=== PATIENT | male | born 1955 | race African-American/Black ===

== ENCOUNTER 2018-11-30 09:24 | Observation (INO) | payer OTHER, SELFPAY ==
[2018-11-30] MEDS ORDERED: Ondansetron PF 4 MG/2 ML Vial ONE (09:38)
[2018-11-30] MEDS ORDERED: Aspirin Chewable 81 MG TAB ONE (09:38)
[2018-11-30 09:45] LABS: #Eosinphils 0.2 thou/uL (0.0-0.7); #Lymphocytes 2.2 thou/uL (1.20-3.40); #Monocytes 0.7 thou/uL (0.11-0.59); #Neutrophils 3.6 thou/uL (1.40-6.50); %Basophils 0.7 % (0.0-1.0); %Eosinophils 2.5 % (0.0-10.0); %Lymphocytes 32.7 % (21.0-51.0); %Monocytes 9.8 % (0.0-10.0); %Neutrophils 54.2 % (42.0-75.0); Hemoglobin 14.4 g/dL (14.0-18.0); Mean Corpuscular HGB CONC 32.9 g/dL (32.0-36.0); Mean Corpuscular Hemoglobin 27.7 pg (27.0-31.0); Platelet Count 284 thou/uL (130-400); RBC Distribution Width 12.4 % (11.5-14.5); Red Blood Cell (RBC) Count 5.21 mill/uL (4.70-6.10); White Blood Cell (WBC) Count 6.6 thou/uL (4.8-10.8)
--- NOTE | 2018-11-30 09:59 | RAD ---
CHEST 1 VIEW PORTABLE: Date: 11/30/18 HISTORY: Chest pain and nausea for several days. FINDINGS: Heart size is within normal limits. Lungs are clear. IMPRESSION: No acute intrathoracic disease. Atherosclerosis of aorta. POS: [facility]
[2018-11-30] MEDS ORDERED: Nitroglycerin 2% Ointment 1 INCH/1 GM Packet ONE (10:01)
[2018-11-30 10:07] LABS: ALT (SGPT) 55 U/L (8-55); AST (SGOT) 50 U/L (5-34); Albumin 4.6 g/dL (3.4-4.8); Alkaline Phosphatase 72 U/L (40-150); Anion Gap 15 mmol/L (10-20); BUN (Urea Nitrogen) 20 mg/dL (8.4-25.7); Bilirubin, Total 0.7 mg/dL (0.2-1.2); CK (CPK) 214 U/L (30-200); Calc. Creatinine Clearance 0 mL/min (70-130); Calcium 10.6 mg/dL (7.8-10.44); Carbon Dioxide 27 mmol/L (23-31); Chloride 100 mmol/L (98-107); Estimated GFR-MDRD 79; Globulin 3.5 g/dL (2.4-3.5); Glucose 113 mg/dL (80-115); Lipase 35 U/L (8-78); Potassium 4.3 mmol/L (3.5-5.1); Protein, Total 8.1 g/dL (5.8-8.1); Sodium 138 mmol/L (136-145)
[2018-11-30] MEDS ORDERED: Acetaminophen 500 MG TAB ONE (10:40)
[2018-11-30 12:28] VITALS: BMI 33.2
[2018-11-30 12:58] LABS: Troponin I Less than 0.010 ng/mL (< 0.028)
[2018-11-30] MEDS ORDERED: Nitroglycerin 0.4 MG TAB (25 Tab Bottle) PO PRN (13:47)
[2018-11-30] MEDS ORDERED: Dextrose 5% in Water 1,000 ML IV PRN (15:07)
[2018-11-30] MEDS ORDERED: Dextrose 50% Abboject 50 ML SYRINGE SLOW IVP PRN (15:07)
[2018-11-30] MEDS ORDERED: HumaLOG 300 UNITS/3 ML VIAL SC PRN (15:07)
--- NOTE | 2018-11-30 15:55 | HP ---
PRIMARY CARE PROVIDER: [facility]. CHIEF COMPLAINT: Chest pain. HISTORY OF PRESENT ILLNESS: Mr. Gaytan is a pleasant 63-year-old gentleman, who was seen at [facility] on November 30, 2018. He reports that 2 days ago he was cutting up a tree. He bent over and then tried to get up. He felt dizzy. At the same time, he started having pain over the left side of his chest, sharp, 7/10 at its worst, nonradiating, no known aggravating or relieving factors. He reports that it was accompanied by dizziness. He went home, took a shower, and got into bed. The next day he started having the chest discomfort as well as the dizziness. He was sent from [facility] to the emergency room because of ongoing chest pain. REVIEW OF SYSTEMS: All other systems reviewed and found to be negative. PAST MEDICAL HISTORY: Hypertension, dyslipidemia, and diabetes mellitus. SURGICAL HISTORY: Appendectomy. SOCIAL HISTORY: The patient reports daily alcohol use. He denies tobacco use or recreational drug use. FAMILY HISTORY: Significant for sickle cell anemia in his mother and colon cancer, hypertension, and diabetes mellitus in his father. ALLERGIES: NO KNOWN DRUG ALLERGIES. CURRENT MEDICATIONS: 1. Amlodipine 10 mg daily. 2. Metformin 500 mg 2 times a day. PHYSICAL EXAMINATION: GENERAL: On examination, Mr. Gaytan is awake and alert, not in acute distress. VITAL SIGNS: Blood pressure is 143/67, pulse 75, respiratory rate 16, and oxygen saturation 100% on room air. He is afebrile. He is obese, with a BMI of 33.2. EYES: No scleral icterus, no conjunctival pallor. ENT: Moist mucosal membranes. No oropharyngeal erythema or exudates. NECK: Supple, nontender, trachea is midline. RESPIRATORY: Accessory muscles of breathing are not active. Chest wall movements are symmetric bilaterally. Lungs are clear to auscultation without wheeze, rhonchi, or crepitations. CARDIOVASCULAR: S1 and S2 are heard, regular. Peripheral pulses palpable. No carotid bruit. No pericardial rub. ABDOMEN: Soft, nontender, bowel sounds heard, no hepatomegaly, no splenomegaly. NEUROLOGIC: Cranial nerves 2 through 12 intact, deep tendon reflexes 2+. MUSCULOSKELETAL: No reproducible chest wall tenderness. Power is 5/5 in all 4 extremities. SKIN: No rashes or subcutaneous nodules. LYMPHATIC: No cervical lymphadenopathy. PSYCHIATRIC: Normal mood, normal affect, the patient is oriented to person, place, and time. LABORATORY DATA: Mr. Gaytan's labs and investigations were reviewed. I reviewed his electrocardiogram, which shows normal sinus rhythm, no ST changes to suggest an acute coronary syndrome. I also reviewed his chest x-ray, which does not show any pulmonary infiltrates. He has an unremarkable CBC, mildly elevated calcium of 10.6, mildly elevated AST of 50, normal total bilirubin, normal ALT, and normal alkaline phosphatase, troponin I that is negative x2, and TSH that is low at 0.0692. ASSESSMENT AND PLAN: Mr. Gaytan is a pleasant 63-year-old gentleman, who was seen at [facility] on November 30, 2018. His problem list includes: 1. Chest pain: Mr. Gaytan will be admitted to the hospital on observation status for telemetry monitoring and stress test. Further management depending on outcome of the test. 2. Diabetes mellitus type 2: We will start Accu-Cheks and insulin sliding scale. 3. Hypertension: We will continue amlodipine, monitor vital signs, and titrate antihypertensives as needed. 4. Low TSH: We will check free T3 and free T4. We will adjust Synthroid if needed. Many thanks for allowing me to participate in your patient's care. Please feel free to contact me with any questions or concerns. LEVEL OF RISK: High. LEVEL OF COMPLEXITY: High. Job ID: [id number]
[2018-11-30 16:18] LABS: Troponin I Less than 0.010 ng/mL (< 0.028)
[2018-11-30 16:35] LABS: Free T4 (Free Thyroxine) 1.05 ng/dL (0.70-1.48)
[2018-11-30] MEDS: metFORMIN 500 MG TAB PO SCH (17:32)
[2018-11-30] MEDS ORDERED: Acetaminophen 325 MG TAB PO PRN (19:52)
[2018-11-30] MEDS ORDERED: Ondansetron PF 4 MG/2 ML Vial IVP PRN (19:53)
[2018-12-01] MEDS: metFORMIN 500 MG TAB PO SCH (08:25)
[2018-12-01] MEDS ORDERED: Atorvastatin Calcium 20 MG TAB PO SCH (09:00)
[2018-12-01] MEDS ORDERED: Lisinopril/Hydrochlorothiazide 20/25 mg Tablet PO SCH (09:00)
[2018-12-01] MEDS ORDERED: Aspirin 325 mg Enteric Coated Tablet PO SCH (09:00)
[2018-12-01] MEDS ORDERED: Chlorthalidone 25 MG TAB PO SCH (09:00)
[2018-12-01] MEDS ORDERED: Amlodipine 10 MG TAB PO SCH (09:00)
[2018-12-01] MEDS ORDERED: ADENOSINE 60 MG/20 ML VIAL ONE (10:15)
[2018-12-01] MEDS ORDERED: ISOVUE-370 76%-LOCM 1 ML ONE (11:12)
--- NOTE | 2018-12-01 11:24 | NM ---
Nuclear medicine Cardiac myocardial perfusion SPECT Ejection fraction study Wall motion cine: DATE: 12/01/2018 History: 63-year-old male with diabetes mellitus, hypertension, and dyslipidemia, presents with chest pain. TECHNIQUE: Number of days:1 Rest study: Technetium 99m-sestamibi (Cardiolite) dose:9.8 mCi Pharmacologic stress: Adenosine dose:57.2 mg Stress study: Technetium 99m-sestamibi (Cardiolite) dose:28.7 mCi FINDINGS: Cardiac (myocardial perfusion) SPECT There are no reversible myocardial perfusion defects. Ejection fraction study Left ventricular EF = 69% Wall motion cine Normal IMPRESSION: No evidence of reversible ischemia.
--- NOTE | 2018-12-01 13:45 | EKG ---
Test Reason : CHEST PAIN Blood Pressure : / mmHG Vent. Rate : 096 BPM Atrial Rate : 096 BPM P-R Int : 156 ms QRS Dur : 080 ms QT Int : 334 ms P-R-T Axes : 030 -07 020 degrees QTc Int : 421 ms Normal sinus rhythm Possible Left atrial enlargement Borderline ECG Confirmed by ANDRES YANG, SUZANNA ([id number]), make up editor JUANCHO DEAN ([id number]) on 12/01/2018 1:45:38 PM Referred By: Confirmed By:SUZANNA CAMPOS MD
[2018-12-01 15:22] VITALS: BP 150/76; TEMP 97.7
--- NOTE | 2018-12-01 16:54 | CT ---
CT ANGIOGRAM THORAX WITH IV CONTRAST AND 3-D RECONSTRUCTIONS CLINICAL INDICATION: Shortness of breath. COMPARISON: None FINDINGS: Pulmonary arteries: No filling defects are seen in the pulmonary arteries to suggest a pulmonary embo marco. Aorta: Minimal vascular calcifications are seen at the aortic arch and at the origin of the left subc lavian artery. The thoracic aorta is normal in caliber without evidence of an aortic dissection. Lungs: There is a small bleb with adjacent pleural and parenchymal scarring at the right lung apex. T here are scattered areas of atelectasis within the lungs. No discrete pulmonary nodule or mass is identified, and there is no pleural effusion.. Mediastinum: There is no evidence of lymphadenopathy. Thyroid gland: Normal CT appearance. Osseous structures: Mild degenerative changes are seen in the spine. Chest wall: No abnormality visualized. Upper abdomen: There is a subcentimeter hypodense too small to characterize lesion in the lateral seg ment left hepatic lobe. Vascular calcifications are seen in the visualized proximal abdominal aorta. Mild fatty replacement of the pancreas is seen. Remainder of the upper abdomen demonstrates no rmal CT appearance for arterial phase of imaging. IMPRESSION: 1. No CT evidence of a pulmonary embolus. 2. Too small to characterize subcentimeter hypodense lesion left hepatic lobe.
--- NOTE | 2018-12-02 02:31 | DIS ---
DATE OF ADMISSION: 11/30/2018 DATE OF DISCHARGE: 12/01/2018 PRIMARY CARE PROVIDER: [facility], [place]. DISCHARGE DIAGNOSES: 1. Chest pain. 2. Most likely musculoskeletal etiology for chest pain. CONDITION OF PATIENT ON THE DAY OF DISCHARGE: Stable. I assessed Mr. Gaytan on the day of discharge. He denies any chest pain. Vital signs are stable. S1 and S2 are heard, regular. Lungs are clear to auscultation bilaterally. DISCHARGE MEDICATIONS: 1. Amlodipine 10 mg daily. 2. Metformin 500 mg 2 times a day. HOSPITAL COURSE: Mr. Gaytan is a pleasant 63-year-old gentleman, who was admitted to [facility] on December 01, 2018, for chest pain. He had a nuclear stress test, which did not show any evidence of reversible ischemia. Left ventricular ejection fraction was 69%. He had an elevated D-dimer and underwent CT angiogram to rule out pulmonary embolism. There was no CT evidence of a pulmonary embolus. He had too small to characterize subcentimeter hypodense lesion in the left hepatic lobe. He was advised to follow up with his primary care provider for the same. He had a low TSH at the time of admission, but free T3 and free T4 were in the normal range at 2.93 and 1.05 respectively. Many thanks for allowing me to participate in your patient's care. Please feel free to contact me with any questions or concerns. DISCHARGE DESTINATION: Home. Job ID: [id number]
== END 2018-12-01 17:46 | disposition home or self-care (01) ==
LOC: ERS 09:24 → 2SW 12:06
PROVIDERS: ADMIT Internal Medicine; ATTEND Internal Medicine
DX: R07.89 Other chest pain (principal); E78.5 Hyperlipidemia, unspecified; E11.9 Type 2 diabetes mellitus without complications; I10 Essential (primary) hypertension; E03.9 Hypothyroidism, unspecified; F41.9 Anxiety disorder, unspecified; Z79.84 Long term (current) use of oral hypoglycemic drugs; Z79.899 Other long term (current) drug therapy
CPT/HCPCS: 36415; 36416; 71045; 71275; 78452; 80053; 82550; 83690; 83735; 84439; 84443; 84481; 84484; 85025; 85379; 93005; 93017; 94760; 96374; A9500; G0378; J0153; J2405; Q9966

== ENCOUNTER 2020-06-29 13:45 | Emergency (ER) | payer MEDICARE, MEDICAID ==
[2020-06-29 15:06] LABS: #Eosinphils 0.1 thou/uL (0.0-0.7); #Lymphocytes 0.9 thou/uL (1.20-3.40); #Monocytes 0.9 thou/uL (0.11-0.59); #Neutrophils 6.2 thou/uL (1.40-6.50); %Basophils 0.1 % (0.0-1.0); %Eosinophils 0.8 % (0.0-10.0); %Lymphocytes 11.3 % (21.0-51.0); %Neutrophils 76.8 % (42.0-75.0); Mean Corpuscular HGB CONC 32.9 g/dL (32.0-36.0); Mean Corpuscular Hemoglobin 28.6 pg (27.0-31.0); Mean Corpuscular Volume 86.8 fL (78.0-98.0); Mean Platelet Volume 7.5 fL (7.4-10.4); Platelet Count 289 thou/uL (130-400); RBC Distribution Width 11.7 % (11.5-14.5); Red Blood Cell (RBC) Count 5.58 mill/uL (4.70-6.10); White Blood Cell (WBC) Count 8.1 thou/uL (4.8-10.8)
--- NOTE | 2020-06-29 15:09 | RAD ---
XR Chest 1 View Portable History: Chest pain Comparison: Radiograph 2019 Findings: Lungs are clear. No pneumothorax. No effusion. Cardiac silhouette and mediastinal contours are similar. No acute osseous abnormality. Mild right distal clavicular osteolysis. Impression: No acute intrathoracic abnormality.
[2020-06-29 15:32] LABS: ALT (SGPT) 59 U/L (8-55); AST (SGOT) 48 U/L (5-34); Albumin 4.1 g/dL (3.4-4.8); Alkaline Phosphatase 83 U/L (40-110); Anion Gap 18 mmol/L (10-20); BUN (Urea Nitrogen) 14 mg/dL (8.4-25.7); Bilirubin, Total 0.5 mg/dL (0.2-1.2); Calc. Creatinine Clearance 0 mL/min (70-130); Calcium 9.2 mg/dL (7.8-10.44); Carbon Dioxide 25 mmol/L (23-31); Chloride 95 mmol/L (98-107); Globulin 3.7 g/dL (2.4-3.5); Glucose 117 mg/dL (80-115); Lipase 14 U/L (8-78); Potassium 3.4 mmol/L (3.5-5.1); Protein, Total 7.8 g/dL (5.8-8.1); Sodium 135 mmol/L (136-145)
[2020-06-29] MEDS ORDERED: Ketorolac Tromethamine 30 MG/ML VIAL ONE (15:38)
[2020-06-29] MEDS ORDERED: Dexamethasone 10 MG/ML VIAL ONE (18:09)
[2020-06-30 01:36] LABS: SARS-CoV-2 MS2 Positive; SARS-CoV-2 N Gene Negative; SARS-CoV-2 S Gene Negative; SARS-CoV-2 by NAA Not Detected (NotDetected); SARS-CoV-2 orf1ab Negative
--- NOTE | 2020-07-04 15:21 | EKG ---
Test Reason : SOB Blood Pressure : / mmHG Vent. Rate : 087 BPM Atrial Rate : 087 BPM P-R Int : 154 ms QRS Dur : 100 ms QT Int : 360 ms P-R-T Axes : 042 -30 016 degrees QTc Int : 433 ms Normal sinus rhythm Possible Left atrial enlargement Left axis deviation Abnormal ECG Confirmed by HARISH SMITH DO ([id number]), web editor JUANCHO DEAN ([id number]) on 07/04/2020 3:20:35 PM Referred By: Confirmed By:HARISH SMITH DO
== END 2020-06-29 18:39 | disposition home or self-care (01) ==
LOC: ERS 13:45
DX: R07.82 Intercostal pain (principal); R05 Cough; E11.9 Type 2 diabetes mellitus without complications; E03.9 Hypothyroidism, unspecified; E78.5 Hyperlipidemia, unspecified; I10 Essential (primary) hypertension; Z20.828 Contact with and (suspected) exposure to other viral communicable diseases; Z79.899 Other long term (current) drug therapy; Z79.82 Long term (current) use of aspirin; Z79.84 Long term (current) use of oral hypoglycemic drugs
CPT/HCPCS: 36415; 71045; 80053; 83690; 84484; 85025; 85379; 87635; 93005; 96372; 96374; J1100; J1885; U0003

== ENCOUNTER 2020-07-06 13:33 | Inpatient (IN) | payer MEDICARE, MEDICAID ==
[~2020-07-06 13:33] MED LIST: Iopamidol-370 76% 500 ML 1 ML ONE
[2020-07-06 14:49] LABS: #Lymphocytes 0.9 thou/uL (1.20-3.40); #Monocytes 0.8 thou/uL (0.11-0.59); #Neutrophils 6.1 thou/uL (1.40-6.50); %Basophils 0.3 % (0.0-1.0); %Eosinophils 0.6 % (0.0-10.0); %Monocytes 9.8 % (0.0-10.0); %Neutrophils 78.3 % (42.0-75.0); Hemoglobin 16.6 g/dL (14.0-18.0); Mean Corpuscular HGB CONC 32.8 g/dL (32.0-36.0); Mean Corpuscular Hemoglobin 28.3 pg (27.0-31.0); Mean Corpuscular Volume 86.3 fL (78.0-98.0); Mean Platelet Volume 7.2 fL (7.4-10.4); Platelet Count 413 thou/uL (130-400); RBC Distribution Width 11.5 % (11.5-14.5); Red Blood Cell (RBC) Count 5.87 mill/uL (4.70-6.10); White Blood Cell (WBC) Count 7.8 thou/uL (4.8-10.8)
--- NOTE | 2020-07-06 14:49 | RAD ---
EXAM: XR Chest 1 View Portable PROVIDED CLINICAL HISTORY: Dyspnea COMPARISON: 06/29/2020 FINDINGS: Cardiac and mediastinal silhouette is unchanged in appearance. There is silhouetting of the lateral l eft hemidiaphragm and blunting of the left costophrenic angle. Lungs appear otherwise clear. There is no evidence for pneumothorax. IMPRESSION: Left basilar pleural-parenchymal opacity. Correlate for pneumonia. Follow-up is recommended.
[2020-07-06 15:01] LABS: ALT (SGPT) 29 U/L (8-55); AST (SGOT) 22 U/L (5-34); Albumin 3.9 g/dL (3.4-4.8); Alkaline Phosphatase 82 U/L (40-110); Anion Gap 20 mmol/L (10-20); BUN (Urea Nitrogen) 20 mg/dL (8.4-25.7); Bilirubin, Total 0.5 mg/dL (0.2-1.2); Calc. Creatinine Clearance 0 mL/min (70-130); Calcium 9.3 mg/dL (7.8-10.44); Carbon Dioxide 26 mmol/L (23-31); Chloride 93 mmol/L (98-107); Globulin 3.4 g/dL (2.4-3.5); Glucose 132 mg/dL (80-115); Lipase 17 U/L (8-78); Protein, Total 7.3 g/dL (5.8-8.1); Sodium 135 mmol/L (136-145)
--- NOTE | 2020-07-06 15:54 | CT ---
EXAM: CT pulmonary angiogram with IV contrast and 3-D MIP reconstructions PROVIDED CLINICAL HISTORY: Dyspnea COMPARISON: None FINDINGS: There is no evidence for central or segmental pulmonary embolus. There are innumerable bilateral miliary pulmonary nodules. There is no significant apical-basilar gra dient. These appear randomly distributed. No pleural fluid or pneumothorax apparent. No evidence for thoracic lymph node enlargement. The airway appears patent and of normal caliber. The visualized portions of the upper abdomen demonstrate no acute findings. The osseous structures demonstrate no concerning lytic or blastic lesions. IMPRESSION: 1. No evidence for central or segmental pulmonary embolus. 2. Diffuse bilateral miliary pulmonary nodules. Differential considerations would include atypical in fectious processes such as tuberculosis and fungal infections. Metastatic disease and inflammatory pneumonitis could also be considered.
[2020-07-06] MEDS ORDERED: cefTRIAXone\\ROCEPHIN 1 GM VIAL ONE (17:21)
--- NOTE | 2020-07-06 17:29 | PDOC.HHP ---
Hospitalist HPI - History of Present Illness Shortness of breath History of Present Illness: 65-year-old male who came to emergency room with a complaint of cough and shortness of breath for last 7 to 9 days, patient visited emergency room on June 29 at that time COVID-19 test was negative, patient had routine work-up done and after that he was sent home, he had worsening of symptoms and now he has bilateral blood-tinged sputum, he has chills and night sweats, but no confirmed fever, he denies any loss of taste or smell sensation, he denies any sore throat, he denies any upper respiratory infection, he denies any chest pain, he does have shortness of breath and he is feeling generalized weak. Today in the emergency room chest x-ray showed left basilar parenchymal opacity, CT angiography was done for slightly read D-dimer and found with no PE but there was diffuse bilateral miliary pulmonary nodule ED Course: VITAL SIGNS MonJul 06, 2020 13:57 AMBER Oliveira Amanda BP: 151/86, MAP: 107, Pulse: 93, Resp: 17, Temp: 98.4 (Oral), Pain: 7, O2 sat: 94 on (Room Air), Time: 07/06/2020 13:57. VITAL SIGNS MonJul 06, 2020 14:30 AMBER Messina Lauren BP: 161/84, Pulse: 91, Resp: 19, O2 sat: 95 on (Room Air), Time: 07/06/2020 14:30. VITAL SIGNS MonJul 06, 2020 15:00 AMBER Messina Lauren BP: 129/77, Pulse: 95, Resp: 20, Pain: 6, O2 sat: 94 on (Room Air), Time: 07/06/2020 15:00. VITAL SIGNS MonJul 06, 2020 16:00 AMBER Messina Lauren BP: 141/83, Pulse: 89, Resp: 22, Pain: 6, O2 sat: 94 on (Room Air), Time: 07/06/2020 16:00 Patient is given Rocephin and azithromycin in the emergency room Hospitalist ROS - Review of Systems Constitutional: reports: weakness, malaise. denies: fever, chills, sweats, other Eyes: denies: pain, vision change, conjunctivae inflammation, eyelid inflammation, redness, other ENT: denies: ear pain, ear discharge, nose pain, nose discharge, nose congestion, mouth pain, mouth swelling, throat pain, throat swelling, other Respiratory: reports: cough, shortness of breath, hemoptysis, SOB with e xcertion, sputum. denies: dry, pleuritic pain, wheezing, other Cardiovascular: denies: chest pain, palpitations, orthopnea, paroxysmal noc. dyspnea, edema, light headedness, other Gastrointestinal: denies: nausea, vomiting, abdominal pain, diarrhea, constipation, melena, hematochezia, other Genitourinary: denies: dysuria, frequency, incontinence, hematuria, retention, other Musculoskeletal: denies: neck pain, shoulder pain, arm pain, back pain, hand pain, leg pain, foot pain, other Skin: denies: rash, lesions, parker, bruising, other - Medication Medications: Allergy Allergies No Known Allergies Allergy (Verified 06/14/16 17:25) per pt Home medication Medication Instructions Recorded Confirmed Type Amlodipine [Norvasc] 10 mg PO DAILY #30 tab 06/17/16 11/30/18 Rx Atorvastatin Calcium [Lipitor] 20 mg PO DAILY 11/30/18 11/30/18 History Chlorthalidone 25 mg PO DAILY 11/30/18 11/30/18 History Lisinopril/Hydrochlorothiazide 1 tablet PO DAILY 11/30/18 11/30/18 History [Lisinopril-Hctz 20-25 mg Tab] Pantoprazole [Protonix] 40 mg PO DAILY 11/30/18 11/30/18 History metFORMIN [Glucophage] 500 mg PO BID-WM 11/30/18 11/30/18 History Hospitalist History - Past Medical History Other Medical History: Peptic ulcer disease Diabetes type 2 Hypothyroidism Dyslipidemia Hypertension Anxiety disorder - Past Surgical History Other Surgical History: Appendicectomy Colonoscopy with polyp removal - Family History Other Family History: No strong family history of premature coronary artery disease stroke or cancer - Social History Other Social History: Patient has history of marijuana abuse, he drinks alcohol on weekends, no history of smoking - Exam General Appearance: NAD, awake alert Eye: PERRL, anicteric sclera ENT: normocephalic atraumatic, no oropharyngeal lesions Neck: supple, symmetric, no JVD, no thyromegaly Heart: RRR, no murmur, no gallops, no rubs Respiratory: no wheezes, no rales, no ronchi Respiratory - other findings: Scattered rales noted Gastrointestinal: soft, non-tender, non-distended, normal bowel sounds Extremities: no cyanosis, no clubbing, no edema Skin: normal turgor, no lesions Neurological: no focal deficits Musculoskeletal: normal tone, normal strength Psychiatric: normal affect, normal behavior, A&O x 3 Hospitalist Results - Labs Result Diagrams: 07/06/20 14:30 07/06/20 14:30 Lab results: WBC 7.8 thou/uL (4.8-10.8) 07/06/20 14:30 Hgb 16.6 g/dL (14.0-18.0) 07/06/20 14:30 Hct 50.6 % (42.0-52.0) 07/06/20 14:30 MCV 86.3 fL (78.0-98.0) 07/06/20 14:30 Plt Count 413 thou/uL (130-400) H 07/06/20 14:30 Neutrophils % 78.3 % (42.0-75.0) H 07/06/20 14:30 Sodium 135 mmol/L (136-145) L 07/06/20 14:30 Potassium 4.0 mmol/L (3.5-5.1) 07/06/20 14:30 Chloride 93 mmol/L (98-107) L 07/06/20 14:30 Carbon Dioxide 26 mmol/L (23-31) 07/06/20 14:30 BUN 20 mg/dL (8.4-25.7) 07/06/20 14:30 Creatinine 1.00 mg/dL (0.7-1.3) 07/06/20 14:30 Glucose 132 mg/dL (80-115) H 07/06/20 14:30 Lactic Acid 1.5 mmol/L (0.5-2.2) 07/06/20 16:36 Calcium 9.3 mg/dL (7.8-10.44) 07/06/20 14:30 Total Bilirubin 0.5 mg/dL (0.2-1.2) 07/06/20 14:30 AST 22 U/L (5-34) 07/06/20 14:30 ALT 29 U/L (8-55) 07/06/20 14:30 Alkaline Phosphatase 82 U/L (40-110) 07/06/20 14:30 Troponin I Less than 0.010 ng/mL (< 0.028) 07/06/20 14:30 B-Natriuretic Peptide 11.2 pg/mL (0-100) 07/06/20 14:30 Serum Total Protein 7.3 g/dL (5.8-8.1) 07/06/20 14:30 Albumin 3.9 g/dL (3.4-4.8) 07/06/20 14:30 Lipase 17 U/L (8-78) 07/06/20 14:30 - Radiology Interpretation CT scan - chest Status: image reviewed by me Additional Comment: IMPRESSION: 1. No evidence for central or segmental pulmonary embolus. 2. Diffuse bilateral miliary pulmonary nodules. Differential considerations would include atypical in fectious processes such as tuberculosis and fungal infections. Metastatic disease and inflammatory pneumonitis could also be considered. Chest x-ray Status: image reviewed by me Additional Comment: IMPRESSION: Left basilar pleural-parenchymal opacity. Correlate for pneumonia. Follow-up is recommended. Hospitalist H&P A/P - Problem (1) Atypical pneumonia Code(s): J18.9 - PNEUMONIA, UNSPECIFIED ORGANISM Status: Acute (2) DM2 (diabetes mellitus, type 2) Status: Chronic Qualifiers: Diabetes mellitus rat exterminator insulin use: without fdc use Diabetes mellitus complication status: with hyperglycemia Qualified Code(s): E11.65 - Type 2 diabetes mellitus with hyperglycemia (3) HLD (hyperlipidemia) Code(s): E78.5 - HYPERLIPIDEMIA, UNSPECIFIED Status: Chronic Qualifiers: Hyperlipidemia type: unspecified Qualified Code(s): E78.5 - Hyperlipidemia, unspecified (4) HTN (hypertension) Code(s): I10 - ESSENTIAL (PRIMARY) HYPERTENSION Status: Chronic Qualifiers: Hypertension type: essential hypertension Qualified Code(s): I10 - Essential (primary) hypertension - Plan Plan: Plan Patient will be admitted to medical floor Pulmonology will be consulted Continue Rocephin and azithromycin Continue gentle IV fluid at NS at 75 mL/h We will send sputum culture,, urine histology, streptococcal pneumonia antigen urine test, Legionella urine antigen test, will check influenza screen, and respiratory viral pathology Tomorrow we will repeat labs DVT prophylaxis Lovenox 40 mg subcu daily GI prophylaxis Pepcid 20 mg twice daily CODE STATUS patient is full code Disposition plan based on clinical course.
[2020-07-06 17:48] LABS: SARS-CoV-2 NAA Rapid Test Not Detected (NotDetected)
[2020-07-06] MEDS ORDERED: Azithromycin 500 MG VIAL ONE (18:11)
[2020-07-06 18:29] LABS: Troponin I Less than 0.010 ng/mL (< 0.028)
[2020-07-06] MEDS ORDERED: HumaLOG 300 UNITS/3 ML VIAL SC PRN ×2 (21:39)
[2020-07-06] MEDS ORDERED: Bisacodyl 10 MG SUPP PR PRN (21:39)
[2020-07-06] MEDS ORDERED: Acetaminophen 325 MG TAB PO PRN (21:39)
[2020-07-06] MEDS ORDERED: Calcium Carbonate 500 MG ChewTAB PO PRN (21:39)
[2020-07-06] MEDS ORDERED: Zolpidem Tartrate 5 MG TAB PO PRN (21:39)
[2020-07-06] MEDS ORDERED: Ondansetron PF 4 MG/2 ML Vial IVP PRN (21:39)
[2020-07-06] MEDS ORDERED: Senokot S 8.6-50 MG TAB PO PRN (21:39)
[2020-07-06] MEDS ORDERED: Dextrose 50% Abboject 50 ML SYRINGE SLOW IVP PRN (21:39)
[2020-07-06] MEDS ORDERED: Dextrose 5% in Water 1,000 ML IV PRN (21:39)
[2020-07-06] MEDS ORDERED: Loperamide HCl 2 MG CAP PO PRN (21:39)
[2020-07-06] MEDS ORDERED: Ondansetron ODT 4 MG TAB PO PRN (21:39)
[2020-07-06] MEDS ORDERED: Sodium Chloride 0.9% 1,000 ML IV SCH (21:45)
[2020-07-06 21:52] VITALS: BMI 28.8
[2020-07-06] MEDS: Famotidine 20 MG TAB PO SCH (23:55)
[2020-07-07] MEDS: Benzonatate 100 MG CAP PO PRN ×3 (00:04→14:04)
[2020-07-07] MEDS: HYDROcodone/Acetaminophen 5/325 mg Tablet PO PRN ×4 (00:20→21:44)
[2020-07-07 00:57] LABS: Legionella Urinary Ag Negative (Negative); Strep pneumo Urine Ag NEGATIVE (NEGATIVE)
[2020-07-07 07:14] LABS: #Eosinphils 0.1 thou/uL (0.0-0.7); #Lymphocytes 1.2 thou/uL (1.20-3.40); #Monocytes 1.1 thou/uL (0.11-0.59); #Neutrophils 8.5 thou/uL (1.40-6.50); %Basophils 0.4 % (0.0-1.0); %Eosinophils 1.4 % (0.0-10.0); %Lymphocytes 10.7 % (21.0-51.0); %Monocytes 10.2 % (0.0-10.0); %Neutrophils 77.4 % (42.0-75.0); Hemoglobin 14.9 g/dL (14.0-18.0); Mean Corpuscular HGB CONC 33.3 g/dL (32.0-36.0); Mean Corpuscular Hemoglobin 29.2 pg (27.0-31.0); Mean Corpuscular Volume 87.5 fL (78.0-98.0); Mean Platelet Volume 6.9 fL (7.4-10.4); Platelet Count 383 thou/uL (130-400); RBC Distribution Width 11.4 % (11.5-14.5); White Blood Cell (WBC) Count 10.9 thou/uL (4.8-10.8)
[2020-07-07 07:37] LABS: ALT (SGPT) 28 U/L (8-55); AST (SGOT) 21 U/L (5-34); Albumin 3.5 g/dL (3.4-4.8); Alkaline Phosphatase 69 U/L (40-110); Anion Gap 18 mmol/L (10-20); BUN (Urea Nitrogen) 18 mg/dL (8.4-25.7); Bilirubin, Total 0.5 mg/dL (0.2-1.2); CRP (Inflammatory) 21.26 mg/dL (= or < 0.5); Calc. Creatinine Clearance 97 mL/min (70-130); Calcium 8.8 mg/dL (7.8-10.44); Carbon Dioxide 26 mmol/L (23-31); Chloride 93 mmol/L (98-107); Globulin 3.6 g/dL (2.4-3.5); Glucose 112 mg/dL (80-115); Potassium 3.4 mmol/L (3.5-5.1); Protein, Total 7.1 g/dL (5.8-8.1); Sodium 134 mmol/L (136-145)
[2020-07-07] MEDS: Famotidine 20 MG TAB PO SCH ×2 (08:19→21:45)
[2020-07-07] MEDS ORDERED: Enoxaparin Sodium 40 MG/0.4 ML SYRINGE SC SCH (09:00)
--- NOTE | 2020-07-07 10:55 | PDOC.HOSPP ---
- Subjective Encounter Date: 07/07/20 Encounter Time: 07:00 Subjective: Patient seen and examined bedside today, patient has a tinge amount of blood in his sputum no fever, he is on room air, - Objective Vital Signs & Weight: Vital Signs (12 hours) Temp Pulse Resp BP BP Pulse Ox 07/07/20 08:20 93 L 07/07/20 07:43 98.2 F 86 18 130/76 93 L 07/07/20 05:50 98.2 F 91 20 167/82 H 94 L 07/07/20 00:00 98.4 F 92 20 143/81 H 94 L Weight Weight 195 lb 9 oz Result Diagrams: 07/07/20 06:49 07/07/20 06:49 Additional Labs: Accuchecks 07/07/20 07/06/20 05:54 22:25 POC Glucose 124 H 119 H Hospitalist ROS - Review of Systems Constitutional: denies: fever, chills, sweats, weakness, malaise, other Eyes: denies: pain, vision change, conjunctivae inflammation, eyelid inflammation, redness, other ENT: denies: ear pain, ear discharge, nose pain, nose discharge, nose conges tion, mouth pain, mouth swelling, throat pain, throat swelling, other Respiratory: reports: cough, hemoptysis, sputum. denies: dry, shortness of breath, SOB with excertion, pleuritic pain, wheezing, other Cardiovascular: denies: chest pain, palpitations, orthopnea, paroxysmal noc. dyspnea, edema, light headedness, other Gastrointestinal: denies: nausea, vomiting, abdominal pain, diarrhea, constipation, melena, hematochezia, other Genitourinary: denies: dysuria, frequency, incontinence, hematuria, retention, other Musculoskeletal: denies: neck pain, shoulder pain, arm pain, back pain, hand pain, leg pain, foot pain, other Skin: denies: rash, lesions, parker, bruising, other - Medication Medications: Active Medications Generic Name Dose Route Start Last Admin Trade Name Freq PRN Reason Stop Dose Admin Hydrocodone Bitart/Acetaminophen 1 tab 07/06/20 21:39 07/07/20 06:11 Hydrocodone/Acetaminophen 5/325 Mg Tablet PO 1 tab Q4H PRN Administration Moderate Pain (4-6) Benzonatate 100 mg 07/06/20 22:39 07/07/20 06:08 Benzonatate 100 Mg Cap PO 100 mg TIDPRN PRN Administration Cough Enoxaparin Sodium 40 mg 07/07/20 09:00 07/07/20 08:19 Enoxaparin Sodium 40 Mg/0.4 Ml Syringe SC 40 mg 0900 DIMITRI Administration Famotidine 20 mg 07/06/20 21:39 07/07/20 08:19 Famotidine 20 Mg Tab PO 20 mg BID DIMITRI Administration - Exam General Appearance: NAD, awake alert Eye: PERRL, anicteric sclera ENT: normocephalic atraumatic, no oropharyngeal lesions Neck: supple, symmetric, no JVD, no thyromegaly Heart: RRR, no murmur, no gallops, no rubs Respiratory: no wheezes, no rales, no ronchi Gastrointestinal: soft, non-tender, non-distended, normal bowel sounds Extremities: no cyanosis, no clubbing, no edema Skin: normal turgor, no lesions Neurological: no focal deficits Musculoskeletal: normal tone, normal strength, no muscle wasting Psychiatric: normal affect, normal behavior, A&O x 3 Hosp A/P (1) Atypical pneumonia Code(s): J18.9 - PNEUMONIA, UNSPECIFIED ORGANISM Status: Acute (2) DM2 (diabetes mellitus, type 2) Status: Chronic Qualifiers: Diabetes mellitus roasterman insulin use: without correction use Diabetes mellitus complication status: with hyperglycemia Qualified Code(s): E11.65 - Type 2 diabetes mellitus with hyperglycemia (3) HLD (hyperlipidemia) Code(s): E78.5 - HYPERLIPIDEMIA, UNSPECIFIED Status: Chronic Qualifiers: Hyperlipidemia type: unspecified Qualified Code(s): E78.5 - Hyperlipidemia, unspecified (4) HTN (hypertension) Code(s): I10 - ESSENTIAL (PRIMARY) HYPERTENSION Status: Chronic Qualifiers: Hypertension type: essential hypertension Qualified Code(s): I10 - Essential (primary) hypertension - Plan old records reviewed/req, continue antibiotics, DVT proph w/lovenox Plan Patient has Diffuse bilateral biliary pulmonary nodule, COVID-19 is negative, influenza a and B-, streptococcal urine antigen and Legionella urine antigen negative, respiratory viral panel is also negative, today I have sent urine histo antigen, sputum Gram stain and culture is pending, I have consulted pulmonology for their expert opinion, based on history patient does not have any recent travel or any sick exposure, tuberculosis and fungal infection less likely, metastatic and inflammatory pneumonitis possible, currently patient is on empiric Rocephin and azithromycin, will continue to monitor while in hospital, further investigation will defer to pulmonology.
--- NOTE | 2020-07-07 12:18 | CON ---
DATE OF CONSULTATION: 07/07/2020 REASON FOR CONSULTATION: Miliary pneumonia. CONSULTING PHYSICIAN: Dr. Arizmendi. HISTORY OF PRESENT ILLNESS: The patient is a pleasant 65-year-old black male, who came into the hospital last night with complaints of abdominal pain which has been long lasting over the last year, shortness of breath and hemoptysis. He has had subjective fever and night sweats and has also lost weight. He had a CT scan performed showing miliary changes in both lungs. The patient has spent approximately 20 years incarcerated [place] He says his has had tuberculosis in the past. The patient himself was treated for what sounds to be latent tuberculosis, but does not know the duration and with what he was treated. He denies any HIV risk factors. He has no previous history of vasculitis. He did smoke for a long time, but quit back in 1988. PAST MEDICAL HISTORY: 1. Peptic ulcer disease. 2. Diabetes mellitus. 3. Latent tuberculosis. 4. Hypothyroidism. 5. Hyperlipidemia. 6. Hypertension. 7. Anxiety. PAST SURGICAL HISTORY: 1. Appendectomy. 2. Colonoscopy with polypectomy. FAMILY MEDICAL HISTORY: His had tuberculosis. SOCIAL HISTORY: Used to smoke marijuana, used to smoke cigarettes and drinks alcohol on weekends. He is currently unemployed. REVIEW OF SYSTEMS: Otherwise negative except for that mentioned above in history of present illness. PHYSICAL EXAMINATION: VITAL SIGNS: Temperature 98.2, pulse 86, respirations 18, O2 saturation 93% on room air, blood pressure 130/76. He is a healthy-appearing male who is coughing up blood. HEENT: Oropharynx is clear. NECK: No adenopathy or JVD. LUNGS: Inspiratory crackles bilaterally. CARDIAC: S1, S2. Regular without murmur. ABDOMEN: Soft and nontender. EXTREMITIES: No clubbing, cyanosis, or edema. LABORATORY DATA: His COVID test was negative. Flu test negative. Sodium 134, potassium 3.4, chloride 93, CO2 of 26, BUN 18, creatinine 0.9, glucose 112. C-reactive protein 21. D-dimer 0.7. White blood cell count 10.9, hematocrit 44.6, and platelet count 383. I reviewed his CT scan in detail. He has a subtle right upper lobe infiltrate. He also has diffuse miliary changes bilaterally. ASSESSMENT: 1. Miliary pneumonia suggestive of possible miliary tuberculosis. 2. Hemoptysis. 3. Previous TB exposure. PLAN: He has to be ruled out for TB. This is TB until proven otherwise. I will get sputum. We will go ahead and check an HIV. I will submit a vasculitis panel for Valerie and Goodpasture disease. If his AFBs are negative, then we will consider bronchoscopy with transbronchial biopsy. Job ID: [id number]
[2020-07-07 12:34] LABS: HIV (1/2) Antibody/Antigen Non-Reactive (NonReactive); HIV 1/2 INDEX 0.16 S/CO (<1.00)
[2020-07-07] MEDS: cefTRIAXone\\ROCEPHIN 1 GM in Sodium Chloride 0.9% 100 ML IVPB SCH (16:45)
[2020-07-07] MEDS: Azithromycin 500 MG in Sodium Chloride 0.9% 250 ML 250 ML IVPB SCH (17:44)
[2020-07-08] MEDS: Benzonatate 100 MG CAP PO PRN ×3 (05:51→20:11)
[2020-07-08] MEDS: Famotidine 20 MG TAB PO SCH ×2 (10:48→20:11)
[2020-07-08] MEDS: HYDROcodone/Acetaminophen 5/325 mg Tablet PO PRN ×2 (11:35→17:23)
--- NOTE | 2020-07-08 11:37 | PRG ---
DATE OF SERVICE: 07/08/2020 SUBJECTIVE: The patient is about the same. OBJECTIVE: VITAL SIGNS: Temperature 98.8, pulse 91, respirations 20, O2 saturations 98% on room air, blood pressure 155/70. HEENT: Unremarkable. NECK: No JVD. LUNGS: Diminished breath sounds. ASSESSMENT: Rule out miliary tuberculosis. PLAN: Awaiting sputum, not much could be done we know those results. Job ID: [id number]
--- NOTE | 2020-07-08 16:15 | PDOC.HOSPP ---
- Subjective Encounter Date: 07/08/20 Encounter Time: 09:30 Subjective: Patient seen for follow-up regarding pneumonia. Reports cough and sputum. - Objective Vital Signs & Weight: Vital Signs (12 hours) Temp Pulse Resp BP Pulse Ox 07/08/20 11:00 98.8 F 99 17 133/66 91 L 07/08/20 08:10 92 L 07/08/20 08:00 92 L 07/08/20 07:37 98.8 F 91 20 155/70 H 90 L 07/08/20 06:43 95 Weight Admit Weight 195 lb 9.008 oz Weight 195 lb 9 oz I&O: 07/07/20 07/08/20 07/09/20 06:59 06:59 06:59 Intake Total 880 Balance 880 Result Diagrams: 07/07/20 06:49 07/07/20 06:49 Additional Labs: Accuchecks 07/08/20 07/08/20 07/07/20 12:08 04:43 20:04 POC Glucose 147 H 121 H 108 H 07/07/20 16:17 POC Glucose 134 H Labs and MAR reviewed by ca Hospitalist ROS - Review of Systems Respiratory: reports: cough, sputum. denies: dry, shortness of breath, hemoptysis, SOB with excertion, pleuritic pain, wheezing Cardiovascular: denies: chest pain, palpitations, orthopnea, paroxysmal noc. dyspnea, edema, light headedness - Medication Medications: Active Medications Generic Name Dose Route Start Last Admin Trade Name Freq PRN Reason Stop Dose Admin Hydrocodone Bitart/Acetaminophen 1 tab 07/06/20 21:39 07/08/20 11:35 Hydrocodone/Acetaminophen 5/325 Mg Tablet PO 1 tab Q4H PRN Administration Moderate Pain (4-6) Benzonatate 100 mg 07/06/20 22:39 07/08/20 11:36 Benzonatate 100 Mg Cap PO 100 mg TIDPRN PRN Administration Cough Famotidine 20 mg 07/06/20 21:39 07/08/20 10:48 Famotidine 20 Mg Tab PO 20 mg BID DIMITRI Administration Ceftriaxone Sodium 1 gm/ 100 mls @ 200 mls/hr 07/07/20 17:00 07/07/20 16:45 Sodium Chloride IVPB 100 mls 1700 DIMITRI Administration Azithromycin 500 mg/ Sodium 250 mls @ 250 mls/hr 07/07/20 18:00 07/07/20 17:44 Chloride IVPB 250 mls 1800 DIMITRI Administration - Exam General Appearance: awake alert Eye: anicteric sclera ENT: normocephalic atraumatic Neck: supple Heart: RRR Respiratory: CTAB Gastrointestinal: soft, non-tender Extremities: no edema Skin: no rashes Psychiatric: normal affect, normal behavior Hosp A/P - Plan -Assessment (1) Atypical pneumonia Code(s): J18.9 - PNEUMONIA, UNSPECIFIED ORGANISM Status: Acute (2) DM2 (diabetes mellitus, type 2) Status: Chronic Qualifiers: Diabetes mellitus buttermaker continuous churn insulin use: without snf use Diabetes mellitus complication status: with hyperglycemia Qualified Code(s): E11.65 - Type 2 diabetes mellitus with hyperglycemia (3) HLD (hyperlipidemia) Code(s): E78.5 - HYPERLIPIDEMIA, UNSPECIFIED Status: Chronic Qualifiers: Hyperlipidemia type: unspecified Qualified Code(s): E78.5 - Hyperlipidemia, unspecified (4) HTN (hypertension) Code(s): I10 - ESSENTIAL (PRIMARY) HYPERTENSION Status: Chronic Qualifiers: Hypertension type: essential hypertension Qualified Code(s): I10 - Essential (primary) hypertension - Plan Continue IV ceftriaxone and IV azithromycin. Appreciate pulmonology service input. Urine Streptococcus pneumonia antigen negative. Legionella antigen negative, urine. HIV 1 and 2 antigen and antibody nonreactive. Tests negative for influenza and Covid. Tuberculosis being ruled out. Sugars are reasonably controlled, continue insulin sliding scale.
[2020-07-08] MEDS: cefTRIAXone\\ROCEPHIN 1 GM in Sodium Chloride 0.9% 100 ML IVPB SCH (17:20)
[2020-07-08] MEDS: Azithromycin 500 MG in Sodium Chloride 0.9% 250 ML 250 ML IVPB SCH (19:55)
[2020-07-09] MEDS: Benzonatate 100 MG CAP PO PRN ×2 (05:20→15:35)
[2020-07-09] MEDS: HYDROcodone/Acetaminophen 5/325 mg Tablet PO PRN (09:55)
[2020-07-09] MEDS: Famotidine 20 MG TAB PO SCH ×2 (09:56→20:17)
--- NOTE | 2020-07-09 14:03 | PRG ---
DATE OF SERVICE: 07/09/2020 SUBJECTIVE: He is still coughing and having hemoptysis. OBJECTIVE: VITAL SIGNS: Temperature 98.9, pulse 74, respirations 18, O2 sat 91% on room air. HEENT: Unremarkable. NECK: No JVD. LUNGS: Inspiratory crackles. CARDIAC: S1, S2. Regular. ABDOMEN: Soft. EXTREMITIES: No edema. LABORATORY DATA: His AFBs are still pending. ASSESSMENT: Rule out miliary tuberculosis. PLAN: Awaiting sputum results. He is continuing antibiotics. Also awaiting results of vasculitis panel. Job ID: [id number]
[2020-07-09] MEDS: cefTRIAXone\\ROCEPHIN 1 GM in Sodium Chloride 0.9% 100 ML IVPB SCH (17:45)
[2020-07-09] MEDS: Azithromycin 500 MG in Sodium Chloride 0.9% 250 ML 250 ML IVPB SCH (18:26)
--- NOTE | 2020-07-09 19:06 | PDOC.HOSPP ---
- Subjective Encounter Date: 07/09/20 Encounter Time: 09:00 Subjective: Patient seen for follow-up regarding pneumonia. He denies any new complaints. - Objective Vital Signs & Weight: Vital Signs (12 hours) Temp Pulse Resp BP Pulse Ox 07/09/20 11:00 98.9 F 74 18 124/74 91 L 07/09/20 08:00 93 L 07/09/20 07:27 98.9 F 106 H 19 151/81 H 93 L Weight Admit Weight 195 lb 9.008 oz Weight 195 lb 9 oz I&O: 07/08/20 07/09/20 07/10/20 06:59 06:59 06:59 Intake Total 880 750 Output Total 850 Balance 880 -100 Result Diagrams: 07/07/20 06:49 07/07/20 06:49 Additional Labs: Accuchecks 07/09/20 07/08/20 07/08/20 04:49 19:42 18:23 POC Glucose 110 H 156 H 132 H I reviewed patient's labs and MAR Hospitalist ROS - Review of Systems Respiratory: reports: cough, sputum. denies: dry, shortness of breath, hemoptysis, SOB with excertion, pleuritic pain, wheezing Skin: denies: rash, lesions, parker, bruising - Medication Medications: Active Medications Generic Name Dose Route Start Last Admin Trade Name Freq PRN Reason Stop Dose Admin Hydrocodone Bitart/Acetaminophen 1 tab 07/06/20 21:39 07/09/20 09:55 Hydrocodone/Acetaminophen 5/325 Mg Tablet PO 1 tab Q4H PRN Administration Moderate Pain (4-6) Benzonatate 100 mg 07/06/20 22:39 07/09/20 15:35 Benzonatate 100 Mg Cap PO 100 mg TIDPRN PRN Administration Cough Famotidine 20 mg 07/06/20 21:39 07/09/20 09:56 Famotidine 20 Mg Tab PO 20 mg BID DIMITRI Administration Ceftriaxone Sodium 1 gm/ 100 mls @ 200 mls/hr 07/07/20 17:00 07/09/20 17:45 Sodium Chloride IVPB 100 mls 1700 DIMITRI Administration Azithromycin 500 mg/ Sodium 250 mls @ 250 mls/hr 07/07/20 18:00 07/09/20 18:26 Chloride IVPB 250 mls 1800 DIMITRI Administration - Exam General Appearance: awake alert Eye: anicteric sclera ENT: moist mucosa Neck: supple Heart: RRR Respiratory: CTAB Gastrointestinal: soft, non-tender Extremities: no edema Musculoskeletal: no muscle wasting Psychiatric: normal affect, normal behavior Hosp A/P - Plan -Assessment (1) Atypical pneumonia Code(s): J18.9 - PNEUMONIA, UNSPECIFIED ORGANISM Status: Acute (2) DM2 (diabetes mellitus, type 2) Status: Chronic Qualifiers: Diabetes mellitus exterminator insulin use: without exterminator use Diabetes mellitus complication status: with hyperglycemia Qualified Code(s): E11.65 - Type 2 diabetes mellitus with hyperglycemia (3) HLD (hyperlipidemia) Code(s): E78.5 - HYPERLIPIDEMIA, UNSPECIFIED Status: Chronic Qualifiers: Hyperlipidemia type: unspecified Qualified Code(s): E78.5 - Hyperlipidemia, unspecified (4) HTN (hypertension) Code(s): I10 - ESSENTIAL (PRIMARY) HYPERTENSION Status: Chronic Qualifiers: Hypertension type: essential hypertension Qualified Code(s): I10 - Essential (primary) hypertension - Plan Patient is IV ceftriaxone and IV azithromycin. AFB smear pending. Sugars are reasonably controlled, continue insulin sliding scale. Pulmonology following.
[2020-07-10] MEDS: Benzonatate 100 MG CAP PO PRN ×3 (00:11→18:16)
[2020-07-10] MEDS: HYDROcodone/Acetaminophen 5/325 mg Tablet PO PRN ×4 (00:15→23:25)
[2020-07-10] MEDS: Famotidine 20 MG TAB PO SCH ×2 (09:22→21:01)
--- NOTE | 2020-07-10 16:42 | PDOC.HOSPP ---
- Subjective Encounter Date: 07/10/20 Encounter Time: 09:00 Subjective: Patient seen for follow-up regarding pneumonia. Reports feeling better. Still has cough that is productive. No hemoptysis. - Objective Vital Signs & Weight: Vital Signs (12 hours) Temp Pulse Resp BP BP Pulse Ox 07/10/20 11:51 97.8 F 90 18 136/86 94 L 07/10/20 07:38 98.9 F 88 18 123/78 93 L 07/10/20 05:00 98.5 F 89 20 136/79 93 L Weight Admit Weight 195 lb 9.008 oz Weight 195 lb 9 oz I&O: 07/09/20 07/10/20 07/11/20 06:59 06:59 06:59 Intake Total 750 Output Total 850 Balance -100 Result Diagrams: 07/07/20 06:49 07/07/20 06:49 Additional Labs: Accuchecks 07/10/20 07/10/20 16:24 11:06 POC Glucose 139 H 123 H Labs and MAR reviewed by in Hospitalist ROS - Review of Systems Respiratory: reports: cough, sputum. denies: dry, shortness of breath, hemoptysis, SOB with excertion, pleuritic pain, wheezing Cardiovascular: denies: chest pain, palpitations, orthopnea, paroxysmal noc. dyspnea, edema, light headedness - Medication Medications: Active Medications Generic Name Dose Route Start Last Admin Trade Name Freq PRN Reason Stop Dose Admin Hydrocodone Bitart/Acetaminophen 1 tab 07/06/20 21:39 07/10/20 09:22 Hydrocodone/Acetaminophen 5/325 Mg Tablet PO 1 tab Q4H PRN Administration Moderate Pain (4-6) Benzonatate 100 mg 07/06/20 22:39 07/10/20 09:22 Benzonatate 100 Mg Cap PO 100 mg TIDPRN PRN Administration Cough Famotidine 20 mg 07/06/20 21:39 07/10/20 09:22 Famotidine 20 Mg Tab PO 20 mg BID DIMITRI Administration Ceftriaxone Sodium 1 gm/ 100 mls @ 200 mls/hr 07/07/20 17:00 07/09/20 17:45 Sodium Chloride IVPB 100 mls 1700 DIMITRI Administration Azithromycin 500 mg/ Sodium 250 mls @ 250 mls/hr 07/07/20 18:00 07/09/20 18:26 Chloride IVPB 250 mls 1800 DIMITRI Administration - Exam General Appearance: awake alert Eye: anicteric sclera ENT: no oropharyngeal lesions Neck: supple Heart: RRR Respiratory: CTAB Gastrointestinal: soft, non-tender Skin: no rashes Psychiatric: normal affect, normal behavior Hosp A/P - Plan -Assessment (1) Atypical pneumonia Code(s): J18.9 - PNEUMONIA, UNSPECIFIED ORGANISM Status: Acute (2) DM2 (diabetes mellitus, type 2) Status: Chronic Qualifiers: Diabetes mellitus fci insulin use: without fci use Diabetes mellitus complication status: with hyperglycemia Qualified Code(s): E11.65 - Type 2 diabetes mellitus with hyperglycemia (3) HLD (hyperlipidemia) Code(s): E78.5 - HYPERLIPIDEMIA, UNSPECIFIED Status: Chronic Qualifiers: Hyperlipidemia type: unspecified Qualified Code(s): E78.5 - Hyperlipidemia, unspecified (4) HTN (hypertension) Code(s): I10 - ESSENTIAL (PRIMARY) HYPERTENSION Status: Chronic Qualifiers: Hypertension type: essential hypertension Qualified Code(s): I10 - Essential (primary) hypertension - Plan Continue IV ceftriaxone and IV azithromycin. AFB smear negative x3 on an concentrated specimen. SContinue insulin sliding scale. Await ANCA and glomerular basement membrane antibody results.
[2020-07-10] MEDS: cefTRIAXone\\ROCEPHIN 1 GM in Sodium Chloride 0.9% 100 ML IVPB SCH (18:01)
[2020-07-10] MEDS: Azithromycin 500 MG in Sodium Chloride 0.9% 250 ML 250 ML IVPB SCH (21:01)
[2020-07-11 06:26] LABS: #Basophils 0.1 thou/uL (0.0-0.2); #Eosinphils 0.6 thou/uL (0.0-0.7); #Lymphocytes 1.6 thou/uL (1.20-3.40); #Monocytes 1.1 thou/uL (0.11-0.59); #Neutrophils 9.5 thou/uL (1.40-6.50); %Basophils 0.5 % (0.0-1.0); %Eosinophils 4.7 % (0.0-10.0); %Lymphocytes 12.2 % (21.0-51.0); %Monocytes 8.3 % (0.0-10.0); %Neutrophils 74.3 % (42.0-75.0); Hemoglobin 14.2 g/dL (14.0-18.0); Mean Corpuscular HGB CONC 32.8 g/dL (32.0-36.0); Mean Corpuscular Hemoglobin 28.5 pg (27.0-31.0); Mean Platelet Volume 6.9 fL (7.4-10.4); Platelet Count 475 thou/uL (130-400); RBC Distribution Width 11.7 % (11.5-14.5); Red Blood Cell (RBC) Count 4.99 mill/uL (4.70-6.10); White Blood Cell (WBC) Count 12.7 thou/uL (4.8-10.8)
[2020-07-11] MEDS: Benzonatate 100 MG CAP PO PRN ×3 (06:28→22:00)
[2020-07-11] MEDS: HYDROcodone/Acetaminophen 5/325 mg Tablet PO PRN ×2 (06:28→16:21)
[2020-07-11 06:51] LABS: Anion Gap 16 mmol/L (10-20); BUN (Urea Nitrogen) 11 mg/dL (8.4-25.7); Calc. Creatinine Clearance 107 mL/min (70-130); Carbon Dioxide 28 mmol/L (23-31); Chloride 95 mmol/L (98-107); Glucose 106 mg/dL (80-115); Potassium 3.8 mmol/L (3.5-5.1); Sodium 135 mmol/L (136-145)
[2020-07-11] MEDS: Famotidine 20 MG TAB PO SCH ×2 (08:47→21:18)
[2020-07-11] MEDS: Cepastat Lozenges 1 LOZ PO PRN ×2 (14:44→19:02)
[2020-07-11] MEDS: cefTRIAXone\\ROCEPHIN 1 GM in Sodium Chloride 0.9% 100 ML IVPB SCH (16:21)
[2020-07-11] MEDS: Azithromycin 500 MG in Sodium Chloride 0.9% 250 ML 250 ML IVPB SCH (18:08)
[2020-07-12] MEDS: Cepastat Lozenges 1 LOZ PO PRN ×4 (02:17→18:45)
[2020-07-12] MEDS: HYDROcodone/Acetaminophen 5/325 mg Tablet PO PRN ×3 (02:21→13:56)
--- NOTE | 2020-07-12 04:08 | PRG ---
DATE OF SERVICE: 07/11/2020 SUBJECTIVE: Jace Gaytan still has cough. He wants cough drops for that. He is not hypoxic. His oximetry is 94. He says he has not coughed up as much blood. Lungs are clear. Heart regular rhythm. Abdomen is soft. Sedimentation rate was 59. Histoplasma antigen was negative. HIV was negative. Legionella screen was negative. COVID was negative. Strep pneumoniae antigen was negative. IMPRESSION: Miliary pattern on chest radiograph of unclear etiology. This still in theory could be disseminated tuberculosis, but he has not been febrile, and it would be unusual for him not to have febrile illness. We will continue to follow for now. May require lung biopsy at some point. Job ID: [id number]
[2020-07-12] MEDS: Benzonatate 100 MG CAP PO PRN ×3 (05:19→20:51)
[2020-07-12 06:36] LABS: #Eosinphils 0.4 thou/uL (0.0-0.7); #Lymphocytes 1.5 thou/uL (1.20-3.40); #Monocytes 0.9 thou/uL (0.11-0.59); #Neutrophils 8.8 thou/uL (1.40-6.50); %Basophils 0.4 % (0.0-1.0); %Eosinophils 3.8 % (0.0-10.0); %Lymphocytes 12.5 % (21.0-51.0); %Monocytes 7.8 % (0.0-10.0); %Neutrophils 75.6 % (42.0-75.0); Hemoglobin 13.8 g/dL (14.0-18.0); Mean Corpuscular HGB CONC 31.4 g/dL (32.0-36.0); Mean Corpuscular Hemoglobin 27.6 pg (27.0-31.0); Mean Corpuscular Volume 87.9 fL (78.0-98.0); Mean Platelet Volume 7.6 fL (7.4-10.4); Platelet Count 477 thou/uL (130-400); RBC Distribution Width 11.6 % (11.5-14.5); White Blood Cell (WBC) Count 11.7 thou/uL (4.8-10.8)
[2020-07-12 06:47] LABS: Anion Gap 17 mmol/L (10-20); BUN (Urea Nitrogen) 9 mg/dL (8.4-25.7); Calc. Creatinine Clearance 117 mL/min (70-130); Calcium 8.9 mg/dL (7.8-10.44); Carbon Dioxide 24 mmol/L (23-31); Chloride 99 mmol/L (98-107); Glucose 104 mg/dL (80-115); Sodium 136 mmol/L (136-145)
[2020-07-12] MEDS: Famotidine 20 MG TAB PO SCH ×2 (09:07→20:38)
--- NOTE | 2020-07-12 14:26 | PDOC.HOSPP ---
- Subjective Encounter Date: 07/12/20 Encounter Time: 08:30 Subjective: Patient seen for follow-up regarding pneumonia. He reports cough with sputum but no blood in sputum. - Objective Vital Signs & Weight: Vital Signs (12 hours) Temp Pulse Resp BP Pulse Ox 07/12/20 08:00 94 L 07/12/20 07:31 98.2 F 79 18 166/78 H 94 L Weight Admit Weight 195 lb 9.008 oz Weight 195 lb 9 oz I&O: 07/11/20 07/12/20 07/13/20 06:59 06:59 06:59 Intake Total 850 1870 240 Balance 850 1870 240 Result Diagrams: 07/12/20 05:54 07/12/20 05:54 Additional Labs: Accuchecks 07/12/20 07/12/20 07/11/20 11:10 05:18 21:53 POC Glucose 147 H 114 H 120 H I reviewed patient's labs and MAR Hospitalist ROS - Review of Systems Respiratory: reports: cough, sputum. denies: dry, shortness of breath, hemoptysis, SOB with excertion, pleuritic pain Cardiovascular: denies: chest pain, palpitations, orthopnea, paroxysmal noc. dyspnea, edema, light headedness - Medication Medications: Active Medications Generic Name Dose Route Start Last Admin Trade Name Freq PRN Reason Stop Dose Admin Hydrocodone Bitart/Acetaminophen 1 tab 07/06/20 21:39 07/12/20 13:56 Hydrocodone/Acetaminophen 5/325 Mg Tablet PO 1 tab Q4H PRN Administration Moderate Pain (4-6) Benzonatate 100 mg 07/06/20 22:39 07/12/20 13:56 Benzonatate 100 Mg Cap PO 100 mg TIDPRN PRN Administration Cough Famotidine 20 mg 07/06/20 21:39 07/12/20 09:07 Famotidine 20 Mg Tab PO 20 mg BID DIMITRI Administration Ceftriaxone Sodium 1 gm/ 100 mls @ 200 mls/hr 07/07/20 17:00 07/11/20 16:21 Sodium Chloride IVPB 100 mls 1700 DIMITRI Administration Azithromycin 500 mg/ Sodium 250 mls @ 250 mls/hr 07/07/20 18:00 07/11/20 18:08 Chloride IVPB 250 mls 1800 DIMITRI Administration Senna/Docusate Sodium 2 tab 07/06/20 21:39 07/11/20 18:10 Senokot S 8.6-50 Mg Tab PO 2 tab BID PRN Administration Constipation Throat Lozenges 1 carine 07/11/20 13:39 07/12/20 09:09 Cepastat Lozenges 1 Carine PO 1 carine Q1H PRN Administration SORE THROAT - Exam General Appearance: awake alert Eye: anicteric sclera ENT: moist mucosa Neck: supple Heart: RRR Respiratory: CTAB Gastrointestinal: soft, non-tender Skin: no rashes Musculoskeletal: no muscle wasting Psychiatric: normal affect, normal behavior Hosp A/P - Plan -Assessment (1) Atypical pneumonia Code(s): J18.9 - PNEUMONIA, UNSPECIFIED ORGANISM Status: Acute (2) DM2 (diabetes mellitus, type 2) Status: Chronic Qualifiers: Diabetes mellitus care home insulin use: without care home use Diabetes mellitus complication status: with hyperglycemia Qualified Code(s): E11.65 - Type 2 diabetes mellitus with hyperglycemia (3) HLD (hyperlipidemia) Code(s): E78.5 - HYPERLIPIDEMIA, UNSPECIFIED Status: Chronic Qualifiers: Hyperlipidemia type: unspecified Qualified Code(s): E78.5 - Hyperlipidemia, unspecified (4) HTN (hypertension) Code(s): I10 - ESSENTIAL (PRIMARY) HYPERTENSION Status: Chronic Qualifiers: Hypertension type: essential hypertension Qualified Code(s): I10 - Essential (primary) hypertension - Plan Concern re: TB vs other etiologies, may need biopsy. Pt is on IV ceftriaxone and IV azithromycin. AFB smear negative x3 Continue insulin sliding scale. Await ANCA and glomerular basement membrane antibody results.
[2020-07-12 16:01] LABS: EliA Vaculitis New Method **** NEW METHOD ****; Glomerular Basemt Membrane Ab Less than 1.9 EliAU/mL (<7 Negative)
--- NOTE | 2020-07-12 16:57 | PRG ---
DATE OF SERVICE: 07/12/2020 SUBJECTIVE: Mr. Gaytan says he is feeling better. His cough is decreased. He has a little left-sided pleuritic chest discomfort that comes and goes. OBJECTIVE: VITAL SIGNS: He is afebrile. Heart rate is in the 70s, respiratory rates in the teens, oximetry is 94% on room air, blood pressure is 166/78. LUNGS: Clear. HEART: Regular rhythm. ABDOMEN: Soft. IMPRESSION: Miliary pattern on chest x-ray with no fever, but cough and shortness of breath on presentation. He has also had hemoptysis. This is resolved. Workup so far has been negative. Smears have been negative. His anti-glomerular basement membrane antibody was negative sedimentation rate was moderately elevated. 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 We will continue supportive care. Decisions need to be made whether or not he needs bronchoscopy. I have added ANCA panel and a QuantiFERON to the lab work because I do not see this resulted if this has been done. Job ID: [id number]
[2020-07-12] MEDS: cefTRIAXone\\ROCEPHIN 1 GM in Sodium Chloride 0.9% 100 ML IVPB SCH (17:34)
[2020-07-12] MEDS: Azithromycin 500 MG in Sodium Chloride 0.9% 250 ML 250 ML IVPB SCH (18:42)
[2020-07-13] MEDS: Cepastat Lozenges 1 LOZ PO PRN ×4 (02:11→20:25)
[2020-07-13] MEDS: HYDROcodone/Acetaminophen 5/325 mg Tablet PO PRN (05:23)
[2020-07-13 07:04] LABS: #Eosinphils 0.5 thou/uL (0.0-0.7); #Lymphocytes 1.5 thou/uL (1.20-3.40); #Monocytes 0.9 thou/uL (0.11-0.59); %Basophils 0.1 % (0.0-1.0); %Eosinophils 4.3 % (0.0-10.0); %Lymphocytes 14.1 % (21.0-51.0); %Neutrophils 73.5 % (42.0-75.0); Hemoglobin 14.1 g/dL (14.0-18.0); Mean Corpuscular HGB CONC 32.3 g/dL (32.0-36.0); Mean Corpuscular Hemoglobin 28.2 pg (27.0-31.0); Mean Corpuscular Volume 87.4 fL (78.0-98.0); Mean Platelet Volume 6.9 fL (7.4-10.4); Platelet Count 535 thou/uL (130-400); RBC Distribution Width 11.4 % (11.5-14.5); White Blood Cell (WBC) Count 10.9 thou/uL (4.8-10.8)
[2020-07-13 07:22] LABS: Anion Gap 17 mmol/L (10-20); BUN (Urea Nitrogen) 8 mg/dL (8.4-25.7); Calc. Creatinine Clearance 116 mL/min (70-130); Calcium 9.3 mg/dL (7.8-10.44); Carbon Dioxide 26 mmol/L (23-31); Chloride 99 mmol/L (98-107); Glucose 100 mg/dL (80-115); Potassium 4.2 mmol/L (3.5-5.1); Sodium 138 mmol/L (136-145)
[2020-07-13] MEDS: Famotidine 20 MG TAB PO SCH ×2 (08:51→20:24)
[2020-07-13] MEDS: Benzonatate 100 MG CAP PO PRN (08:55)
--- NOTE | 2020-07-13 10:20 | RAD ---
2 views chest: 07/13/2020 COMPARISON: 07/06/2020 HISTORY: Pneumonia FINDINGS: There are innumerable pulmonary nodules scattered throughout both lungs. No pneumothorax or pleural effusion. No focal consolidation or alveolar edema. IMPRESSION: No significant interval change in diffuse innumerable miliary pulmonary nodules. Findings may be infectious or neoplastic in nature.
--- NOTE | 2020-07-13 10:21 | PRG ---
DATE OF SERVICE: 07/13/2020 SUBJECTIVE: This morning, he is doing better. He is coughing. He has no evidence of any fever. His sputum has been negative for acid-fast. He has remained afebrile, so I doubt this is TB. OBJECTIVE: VITAL SIGNS: Temperature 97, pulse 79, respirations 18, saturations 90% on room air, blood pressure 130/76. CHEST: No wheezing. No crackles. CARDIAC: Normal S1 and S2. ABDOMEN: No masses. DIAGNOSTIC STUDIES: Abnormal chest x-ray. So far, all sputum negative. Switch him over to oral antibiotics. Supportive care, PT. Pulmonary is going to follow. Job ID: [id number]
[2020-07-13 14:13] LABS: Cytoplasmic (C-ANCA) <1:20 titer (Neg:<1:20); Perinuclear (P-ANCA) <1:20 titer (Neg:<1:20)
--- NOTE | 2020-07-13 17:13 | PDOC.HOSPP ---
- Subjective Encounter Date: 07/13/20 Encounter Time: 09:00 Subjective: Patient seen for follow-up of pneumonia. Reports cough is improving. - Objective Vital Signs & Weight: Vital Signs (12 hours) Temp Pulse Resp BP Pulse Ox 07/13/20 08:00 94 L 07/13/20 07:53 97.6 F 79 18 133/76 94 L Weight Admit Weight 195 lb 9.008 oz Weight 195 lb 9 oz I&O: 07/12/20 07/13/20 07/14/20 06:59 06:59 06:59 Intake Total 1870 3740 Balance 1870 3740 Result Diagrams: 07/13/20 06:43 07/13/20 06:43 Additional Labs: Accuchecks 07/13/20 07/13/20 07/13/20 16:57 11:20 05:57 POC Glucose 103 H 185 H 108 H 07/12/20 07/11/20 07/10/20 19:35 16:05 20:17 POC Glucose 127 H 141 H 106 H 07/10/20 07/09/20 07/09/20 05:31 22:52 15:46 POC Glucose 102 H 97 83 07/09/20 12:02 POC Glucose 161 H I reviewed patient's labs and MAR Hospitalist ROS - Review of Systems Respiratory: reports: cough, sputum Cardiovascular: denies: chest pain, palpitations, orthopnea, paroxysmal noc. dyspnea, edema, light headedness Gastrointestinal: denies: nausea, vomiting, abdominal pain, diarrhea, constipation, melena, hematochezia - Medication Medications: Active Medications Generic Name Dose Route Start Last Admin Trade Name Freq PRN Reason Stop Dose Admin Hydrocodone Bitart/Acetaminophen 1 tab 07/06/20 21:39 07/13/20 05:23 Hydrocodone/Acetaminophen 5/325 Mg Tablet PO 1 tab Q4H PRN Administration Moderate Pain (4-6) Benzonatate 100 mg 07/06/20 22:39 07/13/20 08:55 Benzonatate 100 Mg Cap PO 100 mg TIDPRN PRN Administration Cough Calcium Carbonate 1,000 mg 07/06/20 21:39 07/12/20 17:39 Calcium Carbonate 500 Mg Chewtab PO 1,000 mg Q4H PRN Administration Heartburn or Indigestion Famotidine 20 mg 07/06/20 21:39 07/13/20 08:51 Famotidine 20 Mg Tab PO 20 mg BID DIMITRI Administration Senna/Docusate Sodium 2 tab 07/06/20 21:39 07/11/20 18:10 Senokot S 8.6-50 Mg Tab PO 2 tab BID PRN Administration Constipation Sodium Chloride 10 ml 07/12/20 21:00 07/13/20 08:52 Flush - Normal Saline 10 Ml Syringe IVF 10 ml Q12HR DIMITRI Administration Throat Lozenges 1 carine 07/11/20 13:39 07/13/20 14:19 Cepastat Lozenges 1 Carine PO 1 carine Q1H PRN Administration SORE THROAT - Exam General Appearance: awake alert Eye: anicteric sclera ENT: moist mucosa Neck: supple Heart: RRR Respiratory: CTAB, no wheezes Gastrointestinal: soft, non-tender Skin: no rashes Psychiatric: normal affect, normal behavior Hosp A/P - Plan -Assessment (1) Atypical pneumonia Code(s): J18.9 - PNEUMONIA, UNSPECIFIED ORGANISM Status: Acute (2) DM2 (diabetes mellitus, type 2) Status: Chronic Qualifiers: Diabetes mellitus usp insulin use: without usp use Diabetes mellitus complication status: with hyperglycemia Qualified Code(s): E11.65 - Type 2 diabetes mellitus with hyperglycemia (3) HLD (hyperlipidemia) Code(s): E78.5 - HYPERLIPIDEMIA, UNSPECIFIED Status: Chronic Qualifiers: Hyperlipidemia type: unspecified Qualified Code(s): E78.5 - Hyperlipidemia, unspecified (4) HTN (hypertension) Code(s): I10 - ESSENTIAL (PRIMARY) HYPERTENSION Status: Chronic Qualifiers: Hypertension type: essential hypertension Qualified Code(s): I10 - Essential (primary) hypertension - Plan Patient is clinically improving, has been switched to oral doxycycline. AFB smear negative x3 Continue insulin sliding scale.
[2020-07-13] MEDS: Mometasone 200 MCG/Formoterol 5 MCG 120 PUFF INHALER INH SCH (20:23)
[2020-07-13] MEDS: Doxycycline 100 MG CAP PO SCH (20:24)
[2020-07-14] MEDS: Mometasone 200 MCG/Formoterol 5 MCG 120 PUFF INHALER INH SCH (07:38)
[2020-07-14] MEDS: Famotidine 20 MG TAB PO SCH (09:03)
[2020-07-14 09:04] VITALS: BP 136/77; TEMP 98.4
[2020-07-14] MEDS: Doxycycline 100 MG CAP PO SCH (09:04)
[2020-07-14] MEDS: Benzonatate 100 MG CAP PO PRN (09:24)
[2020-07-14] MEDS ORDERED: predniSONE 20 MG TAB PO SCH (09:30)
--- NOTE | 2020-07-14 12:04 | PDOC.DS.DS ---
Provider - Provider Date of Admission: 07/06/20 17:29 Date of Discharge: 07/14/20 Admitting Provider: Tommy Arizmendi MD Consultations: Pulmonary (Dr. Wilson) Primary Care Physician: Guido Gonzalez MD Course - Hospital Course Hospital Course: Discharge diagnosis: 1. Pneumonia 2. Hyponatremia 3. Hypokalemia 4. COVID-19 test negative 5. Influenza test negative 6. HIV 1 and 2 antigen and antibody nonreactive 7. ANCA and glomerular basement membrane antibodies negative Hospital course: Patient is a pleasant 60-year-old gentleman who was admitted to the hospital on July 06, 2020 for atypical pneumonia and hemoptysis. He was seen by pulmonary and critical care medicine service. Acid-fast bacilli smear was negative x3, acid-fast bacilli culture preliminary report is negative at the time of this dictation. Patient is advised to follow-up with his primary care provider for final AFB culture report. He was treated with intravenous antibiotics and improved clinically. He is being discharged home in stable condition. Many thanks for allowing me to participate in your patient's care. Please feel free to contact me with any questions or concerns. Discharge destination: Home Total amount of time spent coordinating this discharge: 32 minutes Resuscitation Status: 07/06/20 17:35 Resuscitation Status Routine Resuscitation Status: FULL: Full Resuscitation - Labs Lab Results: 07/13/20 06:43 07/13/20 06:43 Abnormal Lab Results - Last 48 hrs 07/13/20 06:43: BUN 8 L 07/13/20 06:43: WBC 10.9 H, RDW 11.4 L, Plt Count 535 H, MPV 6.9 L, Lymphocytes % 14.1 L, Neutrophils # 8.0 H, Monocytes # 0.9 H 07/14/20 09:46: C-Reactive Protein 9.58 H Microbiology - Entire Visit 07/09/20 05:00 Pending Collection - Pending Direct Acid Fast Bacilli Smear - Final 07/09/20 05:00 Pending Collection - Pending Acid Fast Bacilli Smear - Final 07/09/20 05:00 Pending Collection - Pending Acid Fast Bacilli Culture - Preliminary Specimen has been received and culture in progress. No Growth to date. 07/10/20 05:30 Pending Collection - Pending Direct Acid Fast Bacilli Smear - Final 07/10/20 05:30 Pending Collection - Pending Acid Fast Bacilli Smear - Final 07/10/20 05:30 Pending Collection - Pending Acid Fast Bacilli Culture - Preliminary Specimen has been received and culture in progress. No Growth to date. 07/08/20 10:50 Pending Collection - Pending Direct Acid Fast Bacilli Smear - Final 07/08/20 10:50 Pending Collection - Pending Acid Fast Bacilli Smear - Final 07/08/20 10:50 Pending Collection - Pending Acid Fast Bacilli Culture - Preliminary Specimen has been received and culture in progress. No Growth to date. 07/06/20 16:36 Venous blood - Right Hand Blood Culture - Final NO GROWTH IN 5 DAYS 07/06/20 16:36 Venous blood - Left Arm Blood Culture - Final NO GROWTH IN 5 DAYS 07/07/20 02:32 Sputum Respiratory Culture - Final 07/07/20 02:32 Nasopharyngeal swab Respiratory Panel (PCR) - Final - Physical Exam Vitals: Vital Signs (12 hours) Temp Pulse Resp BP BP Pulse Ox 07/14/20 08:00 98.4 F 91 18 136/77 93 L 07/14/20 07:22 98.2 F 89 18 145/83 H 93 L Weight Admit Weight 195 lb 9.008 oz Weight 195 lb 9 oz Physical Exam: The patient was seen and examined on the day of discharge. Patient denies chest pain or shortness of breath. Vital signs are stable. S1 and S2 are heard. Lungs are clear to auscultation bilaterally. Plan - Discharge Medications Prescriptions: predniSONE 20 mg PO ASDIR #12 tab Doxycycline [Vibramycin] 100 mg PO BID #14 cap Home Medications: Medication Instructions Recorded Confirmed Type Amlodipine [Norvasc] 10 mg PO DAILY #30 tab 06/17/16 07/07/20 Rx Atorvastatin Calcium [Lipitor] 20 mg PO DAILY 11/30/18 07/07/20 History Chlorthalidone 25 mg PO DAILY 11/30/18 07/07/20 History Lisinopril/Hydrochlorothiazide 1 tablet PO DAILY 11/30/18 07/07/20 History [Lisinopril-Hctz 20-25 mg Tab] Pantoprazole [Protonix] 40 mg PO DAILY 11/30/18 07/07/20 History metFORMIN [Glucophage] 500 mg PO BID- 11/30/18 07/07/20 History Doxycycline [Vibramycin] 100 mg PO BID #14 cap 07/14/20 Rx predniSONE 20 mg PO ASDIR #12 tab 07/14/20 Rx Allergies: No Known Allergies Allergy (Verified 07/06/20 21:46) per pt - Discharge Instructions Discharge Instructions:: Follow-up with primary care provider for final acid-fast bacilli culture result. Activity:: Activity as Tolerated Nourishment:: Diabetic Diet, Heart Healthy Diet - Follow up Plan Referrals: Syed Wilson MD [Active] - Guido Gonzalez MD [Primary Care Provider] - 3 Days Disposition: HOME Quality - Care Measures CORE MEASURES:: N/A
--- NOTE | 2020-07-14 12:37 | PRG ---
DATE OF SERVICE: 07/14/2020 SUBJECTIVE: This morning, he is awake, alert, responsive. He is still coughing. OBJECTIVE: VITAL SIGNS: Temperature 98, pulse 89, respirations 18, sats 93% on room air, blood pressure 145/83. CHEST: No wheezing. No crackles. CARDIAC: Normal S1 and S2. No gallops. ABDOMEN: No masses. LABORATORY DATA: His ANCA negative. ADDI is negative. All his tests so far negative for vasculitis. No further hemoptysis. IMAGING STUDIES: His last chest x-ray taken yesterday shows essentially multiple pulmonary nodules. ASSESSMENT: Cough, abnormal chest x-ray, etiology unclear. So far all cultures are negative. Acid-fast smear is negative. Tests for vasculitis are negative. PLAN: I am going to start him on low-dose prednisone, empiric antibiotics. If he remains stable, may consider discharge home. I am not sure diagnostic bronchoscopy is going to be of much value in this patient. If he needs anything, he may need an open lung biopsy. We will follow. Job ID: [id number]
[2020-07-14] MEDS: Cepastat Lozenges 1 LOZ PO PRN (14:18)
[2020-07-15] MEDS ORDERED: predniSONE 20 MG TAB PO SCH (08:00)
--- NOTE | 2020-07-16 02:57 | PQF ---
CLINICAL DOCUMENTATION CLARIFICATION FORM: Dear : Jace Ferguson Date / Time: 07/16/2020255 Please exercise your independent, professional judgment in responding to the clarification form. Clinical indicators are provided on the bottom of this form for your review Please check appropriate box(es): [ ] Sepsis due to Atypical Pneumonia [ x ] Localized infection without sepsis [ ] Other diagnosis, please specify [ ] Unable to determine In addition, please specify: Present on Admission (POA): [ x] Yes [ ] No [ ] Unable to determine Physician Signature: Date/Time: For continuity of documentation, please document condition throughout progress notes and discharge summary. Thank You. To be completed by CDI/Coding staff for physician review: Present Clinical Indicators - Signs / Symptoms / Labs Results and Location in Medical Record [x] WBC 7.8, 10.9, 12.7, Plt count 413; 383; 475, Neutrophils 78.3; 77.4; 74.3, Lactic Acid 1.5 Laboratory 07/06- [x] Blood culture no growth Microbiology 07/06 [x] Chest X-ray: Left basilar pleural-parenchymal opacity Imaging Dr Ortez 07/06 [x] BP 141/83, Pulse 95, Resp 20, Temp 98.4 Vital signs 07/06 [x] SIRS scoring: Yes pt did meet at least 1 criteria ED notes p2 07/06 [x] Atypicla Pneumonia H&P p5 07/06 Dr Arizmendi Present Risk Factors Results and Location in Medical Record [x] 65 year-old Male H&P p1 07/06 Dr Arizmendi [x] DM H&P p1 07/06 Dr Arizmendi [x] HTN H&P p1 07/06 Dr Arizmendi [x] Atypicla Pneumonia H&P p5 07/06 Dr Arizmendi Present Treatments Results and Location in Medical Record [x] IV Zithromax 500 mg SEP 25 [x] IV Rocephin 1 gm SEP 25 [x] IV Vibramycin 100 mg oral SEP 25 [x] IVF NS 1L SEP 25 [x] Pulmo consult Consult Dr Wilson 07/08 CDS/Banquet Supervisor Signature: Ally Adamson Phone #: [phone] Date/Time: 07/16/2020255 This is a permanent part of the Medical Record [facility]
[2020-07-16 23:12] LABS: QuantiFERON-TB Gold Plus Negative (Negative)
--- NOTE | 2020-07-18 16:53 | EKG ---
Test Reason : Blood Pressure : / mmHG Vent. Rate : 093 BPM Atrial Rate : 093 BPM P-R Int : 142 ms QRS Dur : 084 ms QT Int : 354 ms P-R-T Axes : 043 -25 027 degrees QTc Int : 440 ms Poor data quality, interpretation may be adversely affected Sinus rhythm with Premature atrial complexes Possible Left atrial enlargement Borderline ECG Confirmed by EFREN NEVES ([id number]), editor farm journal JUANCHO DEAN ([id number]) on 07/18/2020 4:53:07 PM Referred By: Confirmed By:EFREN Townsend
[2020-07-19 15:59] LABS: ANA Symphony (Qualitative) Negative (Negative); ANA Symphony (Quantitative) 0.2 Ratio (< 0.7 Negative); dsDNA IgG Antibody 0.6 IU/mL (<10 Negative)
[2020-07-19 18:13] LABS: Cytoplasmic (C-ANCA) <1:20 titer (Neg:<1:20); Myeloperoxidase AutoAbs <9.0 U/mL (0.0-9.0); Perinuclear (P-ANCA) <1:20 titer (Neg:<1:20); Proteinase-3 AutoAbs Less than 3.5 U/mL (0.0-3.5)
== END 2020-07-14 16:20 | disposition home or self-care (01) | DRG 194 ==
LOC: ERS 13:33 → T4-A 17:29
PROVIDERS: ADMIT Internal Medicine; ATTEND Internal Medicine
PROC: 8E0ZXY6 Isolation (ICD-10-PCS; principal; 2020-07-07)
DX: J18.9 Pneumonia, unspecified organism (principal); E87.1 Hypo-osmolality and hyponatremia; R04.2 Hemoptysis; Z20.828 Contact with and (suspected) exposure to other viral communicable diseases; E78.5 Hyperlipidemia, unspecified; E03.9 Hypothyroidism, unspecified; F41.9 Anxiety disorder, unspecified; F12.10 Cannabis abuse, uncomplicated; E11.65 Type 2 diabetes mellitus with hyperglycemia; E87.6 Hypokalemia; Z22.7 Latent tuberculosis; Z79.899 Other long term (current) drug therapy; Z79.84 Long term (current) use of oral hypoglycemic drugs; Z87.11 Personal history of peptic ulcer disease; Z90.49 Acquired absence of other specified parts of digestive tract; Z87.891 Personal history of nicotine dependence
CPT/HCPCS: 0240U; 36415; 36416; 71045; 71046; 71275; 80048; 80053; 82728; 83516; 83520; 83605; 83690; 83880; 84484; 85025; 85379; 85652; 86038; 86140; 86225; 86256; 86480; 87040; 87070; 87116; 87205; 87206; 87385; 87389; 87449; 87633; 87798; 87899; 93005; 96365; 96367; J0456; J0696; J1650; J3490; J7050; J7512; Q9967

== ENCOUNTER 2020-07-27 14:17 | Inpatient (IN) | payer MEDICARE, MEDICAID ==
[2020-07-27 14:45] LABS: #Basophils 0.1 thou/uL (0.0-0.2); #Eosinphils 0.3 thou/uL (0.0-0.7); #Lymphocytes 2.2 thou/uL (1.20-3.40); #Monocytes 0.8 thou/uL (0.11-0.59); #Neutrophils 3.8 thou/uL (1.40-6.50); %Basophils 0.9 % (0.0-1.0); %Eosinophils 4.3 % (0.0-10.0); %Lymphocytes 30.9 % (21.0-51.0); %Monocytes 11.5 % (0.0-10.0); %Neutrophils 52.4 % (42.0-75.0); Hemoglobin 17.2 g/dL (14.0-18.0); Mean Corpuscular HGB CONC 32.9 g/dL (32.0-36.0); Mean Corpuscular Volume 85.2 fL (78.0-98.0); Mean Platelet Volume 7.6 fL (7.4-10.4); Platelet Count 319 thou/uL (130-400); RBC Distribution Width 12.2 % (11.5-14.5); Red Blood Cell (RBC) Count 6.13 mill/uL (4.70-6.10); White Blood Cell (WBC) Count 7.2 thou/uL (4.8-10.8)
--- NOTE | 2020-07-27 14:51 | RAD ---
CHEST 1 VIEW: HISTORY: Generalized weakness. COMPARISON: Radiograph of 07/13/2020. CT of the chest 07/06/2020. FINDINGS: Similar appearance to the diffuse miliary nodules. No pneumothorax. No effusion. No acute osseous abnormality. IMPRESSION: Similar appearance to the diffuse miliary nodules concerning for an atypical viral or tuberculosis in fection. Fungal infection, metastatic disease, and other inflammatory pneumonias are also a possibil ity. Less likely hemorrhage. POS: HOME
[2020-07-27] MEDS ORDERED: Sodium Chloride 0.9% 100 ML ONE (14:53)
[2020-07-27] MEDS ORDERED: Cefepime 2 GM VIAL ONE (14:53)
[2020-07-27 15:12] LABS: ALT (SGPT) 58 U/L (8-55); AST (SGOT) 35 U/L (5-34); Albumin 4.2 g/dL (3.4-4.8); Alkaline Phosphatase 78 U/L (40-110); Anion Gap 22 mmol/L (10-20); BUN (Urea Nitrogen) 17 mg/dL (8.4-25.7); Bilirubin, Total 0.5 mg/dL (0.2-1.2); Calc. Creatinine Clearance 0 mL/min (70-130); Calcium 9.8 mg/dL (7.8-10.44); Carbon Dioxide 21 mmol/L (23-31); Chloride 98 mmol/L (98-107); Globulin 3.2 g/dL (2.4-3.5); Glucose 130 mg/dL (80-115); Lipase 24 U/L (8-78); Protein, Total 7.4 g/dL (5.8-8.1); Sodium 137 mmol/L (136-145)
--- NOTE | 2020-07-27 15:45 | CT ---
Exam: CT angiogram of the chest HISTORY: Recurrent pneumonia. Weakness. Cough. COMPARISON: 07/06/2020, 12/01/2018 TECHNIQUE: CT angiogram of the chest is performed in the axial plane. Three-dimensional reformatted i mages are submitted for interpretation FINDINGS: Mediastinum: No mass, lymphadenopathy or hematoma. HEART: Normal size. No significant pericardial fluid. Aorta: No aneurysm or dissection Upper solid abdominal viscera: No abnormality enhancement. Stable hypodensity in the left hepatic lob e. Trachea and central bronchi: Patent Pleural spaces: No effusion Lung parenchyma: Diffuse reticulonodular opacities, less extensive when compared to the previous exam ination.. Pneumothorax: None Osseous structures: No lytic or blastic lesions Pulmonary arteries: Adequate contrast opacification pulmonary arterial system to the level of segment al arteries. No filling defect to suggest pulmonary embolism IMPRESSION: 1. No evidence of pulmonary artery embolism to the level segmental arteries 2. Diffuse reticulonodular opacities. Correlate for atypical pneumonia/viral. Degree of reticular nod ular opacities has decreased since 07/06/2020.
[2020-07-27 17:27] LABS: SARS-CoV-2 NAA Rapid Test Not Detected (NotDetected)
[2020-07-27] MEDS ORDERED: Ondansetron ODT 4 MG TAB PO PRN (17:31)
[2020-07-27] MEDS ORDERED: Acetaminophen 325 MG TAB PO PRN (17:31)
[2020-07-27] MEDS ORDERED: Ondansetron PF 4 MG/2 ML Vial IVP PRN (17:31)
--- NOTE | 2020-07-27 17:53 | PDOC.HHP ---
Hospitalist HPI - History of Present Illness Shortness of breath, night sweats, anorexia History of Present Illness: Patient is a 65-year-old male who was admitted to this facility recently on 07/06/2020. At that time the patient had shortness of breath. His work-up included a CT angiogram of the chest which revealed a reticulonodular/miliary pattern type of diffuse infiltrate in the lungs. He was seen by pulmonology. He had 3 - AFB smears, negative cultures, negative ANCA, negative bacterial antibody work-up. He was ultimately discharged on p.o. doxycycline and on prednisone taper. Patient reports that when he left the hospital he was feeling somewhat better. He was staying at his sister's house. He just finished his taper of medications and went back to his home on 05/24/2021. He said since then he has had increasing night sweats, decreased appetite with poor p.o. intake. He has continued to have some shortness of breath as well. Reports that his urine has become very dark. He says he is try to get into his PCP in [place] a couple times but has had his appointments canceled. He was subsequently referred back to the emergency department. ED Course: The emergency department the patient's labs were generally unremarkable. He had a repeat CT of the chest which continues to show similar pattern although slightly improved. He was given 1 L of normal saline as well as Levaquin and cefepime. Of note he was satting 94% on room air but his pulse was 116. Hospitalist ROS - Review of Systems Constitutional: reports: sweats, weakness, malaise. denies: fever, chills Respiratory: reports: cough, dry, shortness of breath, SOB with excertion. denies: hemoptysis Cardiovascular: denies: chest pain, palpitations Gastrointestinal: reports: nausea, constipation. denies: vomiting, abdominal pain, diarrhea All other systems reviewed; all pertinent +/- noted in HPI/Subj - Medication Medications: amLODIPine TABLET : Strength - 10 mg : ORAL Patient Dose: 1 tab(s) Oral once a day. chlorthalidone tablet : Strength - 25 mg : ORAL Patient Dose: 2 tab(s) Oral once a day. pantoprazole oral tablet,delayed release (DR/EC) : Strength - 40 mg : ORAL Patient Dose: 1 tab(s) Oral once a day. metFORMIN tablet : Strength - 1,000 mg : ORAL Patient Dose: 1 tab(s) Oral 2 times a day (before meals). atorvastatin tablet : Strength - 20 mg : ORAL Patient Dose: 1 tab(s) Oral once a day (in the evening). Aspir-81 tablet,delayed release (DR/EC) : Strength - 81 mg : ORAL Patient Dose: 1 tab(s) Oral once a day. cetirizine tablet,chewable : Strength - 10 mg : ORAL Patient Dose: 1 tab(s) Oral once a day. Hospitalist History - Past Medical History Source: patient Other Medical History: Peptic ulcer disease Diabetes mellitus type 2 Hypothyroidism Dyslipidemia Hypertension Anxiety disorder Marijuana use - Past Surgical History Past Surgical History: reports: Appendectomy, Other (Colon polyp removed) - Family History Family History: denies: cancer, cardiac disorder, cerebrovascular accident - Social History Smoking Status: Former smoker Alcohol: reports: Occassional Drugs: reports: marijuana Living Situation: Alone - Exam General Appearance: NAD, awake alert Eye: PERRL Neck: supple, symmetric, no JVD, no thyromegaly, no lymphadenopathy, no carotid bruit Heart: RRR, no murmur, no gallops, no rubs, normal peripheral pulses Respiratory: no wheezes, no ronchi, rales (Diffuse fine rales bilaterally. Dry cough with deep inspiration.) Gastrointestinal: soft, non-tender, non-distended, normal bowel sounds, no palpable masses, no hepatomegaly, no splenomegaly, no bruit Extremities: no cyanosis, no clubbing, no edema Skin: normal turgor Neurological: no focal deficits Musculoskeletal: normal tone, normal strength Psychiatric: normal affect, normal behavior, A&O x 3 Hospitalist Results - Labs Result Diagrams: 07/27/20 14:33 07/27/20 14:33 Lab results: WBC 7.2 thou/uL (4.8-10.8) 07/27/20 14:33 Hgb 17.2 g/dL (14.0-18.0) 07/27/20 14:33 Hct 52.3 % (42.0-52.0) H 07/27/20 14:33 MCV 85.2 fL (78.0-98.0) 07/27/20 14:33 Plt Count 319 thou/uL (130-400) 07/27/20 14:33 Neutrophils % 52.4 % (42.0-75.0) 07/27/20 14:33 Sodium 137 mmol/L (136-145) 07/27/20 14:33 Potassium 4.0 mmol/L (3.5-5.1) 07/27/20 14:33 Chloride 98 mmol/L (98-107) 07/27/20 14:33 Carbon Dioxide 21 mmol/L (23-31) L 07/27/20 14:33 BUN 17 mg/dL (8.4-25.7) 07/27/20 14:33 Creatinine 0.95 mg/dL (0.7-1.3) 07/27/20 14:33 Glucose 130 mg/dL (80-115) H 07/27/20 14:33 Lactic Acid 2.4 mmol/L (0.5-2.2) H 07/27/20 14:35 Calcium 9.8 mg/dL (7.8-10.44) 07/27/20 14:33 Total Bilirubin 0.5 mg/dL (0.2-1.2) 07/27/20 14:33 AST 35 U/L (5-34) H 07/27/20 14:33 ALT 58 U/L (8-55) H 07/27/20 14:33 Alkaline Phosphatase 78 U/L (40-110) 07/27/20 14:33 Troponin I Less than 0.010 ng/mL (< 0.028) 07/27/20 14:33 B-Natriuretic Peptide 12.6 pg/mL (0-100) 07/27/20 14:31 Serum Total Protein 7.4 g/dL (5.8-8.1) 07/27/20 14:33 Albumin 4.2 g/dL (3.4-4.8) 07/27/20 14:33 Lipase 24 U/L (8-78) 07/27/20 14:33 - Radiology Interpretation CT scan - chest Status: report reviewed by me (CTA of chest with persistent fine reticular nodular pattern diffusely) Hospitalist H&P A/P - Problem (1) Dehydration Code(s): E86.0 - DEHYDRATION Status: Acute (2) Atypical pneumonia Code(s): J18.9 - PNEUMONIA, UNSPECIFIED ORGANISM Status: Acute (3) DM2 (diabetes mellitus, type 2) Status: Chronic Qualifiers: Diabetes mellitus care home insulin use: without data analytics chief scientist use Diabetes mellitus complication status: with hyperglycemia Qualified Code(s): E11.65 - Type 2 diabetes mellitus with hyperglycemia (4) HLD (hyperlipidemia) Code(s): E78.5 - HYPERLIPIDEMIA, UNSPECIFIED Status: Chronic Qualifiers: Hyperlipidemia type: unspecified Qualified Code(s): E78.5 - Hyperlipidemia, unspecified (5) HTN (hypertension) Code(s): I10 - ESSENTIAL (PRIMARY) HYPERTENSION Status: Chronic Qualifiers: Hypertension type: essential hypertension Qualified Code(s): I10 - Essential (primary) hypertension (6) Dyspnea on exertion Code(s): R06.00 - DYSPNEA, UNSPECIFIED Status: Acute - Plan Plan: Dehydration: Patient has had poor p.o. intake due to the underlying pulmonary issues. He is tachycardic with fairly dark urine. He is received 1 L of fluids in the emergency department. We will continue with IV hydration. Lactic acidosis: Likely secondary to some volume contraction. Continue IV fluids Atypical pneumonia with dyspnea on exertion: Work-up was essentially negative during his previous admission. His findings persist although somewhat improved on CT scan. Consult pulmonology. Patient may need bronchoscopy with biopsy for a more definitive diagnosis. However, given some evidence of improvement he may need a longer course of steroids. We will give him prednisone now and defer to pulmonology whether we need to cont inue these. Of note the patient has had 3 - AFB smears on concentrated specimens. He does not need isolation at this time. Diabetes mellitus: Continue with his home dose of Metformin. Diabetic diet and Accu-Cheks. Hypertension: Continue with his usual home regimen. Hyperlipidemia: Continue home regimen
[2020-07-27] MEDS ORDERED: predniSONE 20 MG TAB PO SCH (18:00)
[2020-07-27 18:23] LABS: Lactic Acid 1.9 mmol/L (0.5-2.2)
[2020-07-27] MEDS ORDERED: Famotidine/PF 20 mg/2ml Vial SLOW IVP SCH (21:00)
[2020-07-27] MEDS: Sodium Chloride 0.9% 1,000 ML IV SCH (21:11)
[2020-07-27] MEDS: Atorvastatin Calcium 20 MG TAB PO SCH (21:11)
[2020-07-28 05:41] LABS: #Basophils 0.1 thou/uL (0.0-0.2); #Eosinphils 0.1 thou/uL (0.0-0.7); #Lymphocytes 1.1 thou/uL (1.20-3.40); #Monocytes 0.3 thou/uL (0.11-0.59); #Neutrophils 4.5 thou/uL (1.40-6.50); %Eosinophils 1.1 % (0.0-10.0); %Lymphocytes 18.4 % (21.0-51.0); %Monocytes 4.5 % (0.0-10.0); Hemoglobin 15.1 g/dL (14.0-18.0); Mean Corpuscular HGB CONC 32.2 g/dL (32.0-36.0); Mean Corpuscular Hemoglobin 27.4 pg (27.0-31.0); Mean Corpuscular Volume 85.1 fL (78.0-98.0); Mean Platelet Volume 8.1 fL (7.4-10.4); Platelet Count 283 thou/uL (130-400); Red Blood Cell (RBC) Count 5.52 mill/uL (4.70-6.10)
[2020-07-28 06:04] LABS: Anion Gap 13 mmol/L (10-20); BUN (Urea Nitrogen) 19 mg/dL (8.4-25.7); Calc. Creatinine Clearance 109 mL/min (70-130); Calcium 9.1 mg/dL (7.8-10.44); Carbon Dioxide 26 mmol/L (23-31); Chloride 96 mmol/L (98-107); Glucose 143 mg/dL (80-115); Potassium 3.9 mmol/L (3.5-5.1); Sodium 131 mmol/L (136-145)
[2020-07-28] MEDS: Pantoprazole 40 MG VIAL IVP SCH (08:34)
[2020-07-28] MEDS: Amlodipine 10 MG TAB PO SCH (08:34)
[2020-07-28] MEDS: metFORMIN 500 MG TAB PO SCH ×2 (08:34→16:25)
[2020-07-28] MEDS: Chlorthalidone 25 MG TAB PO SCH (08:34)
[2020-07-28] MEDS: Enoxaparin Sodium 40 MG/0.4 ML SYRINGE SC SCH (08:34)
[2020-07-28] MEDS: Lisinopril/Hydrochlorothiazide 20/25 mg Tablet PO SCH (08:34)
[2020-07-28] MEDS: Sodium Chloride 0.9% 1,000 ML IV SCH ×2 (08:39→22:11)
--- NOTE | 2020-07-28 09:04 | PDOC.HOSPP ---
- Subjective Encounter Date: 07/28/20 Encounter Time: 08:55 Subjective: still coughing, trouble sleeping - Objective Vital Signs & Weight: Vital Signs (12 hours) Temp Pulse Resp BP BP Pulse Ox 07/28/20 08:34 90 151/92 H 07/28/20 08:19 97.7 F 90 14 151/92 H 99 07/28/20 04:18 98.5 F 87 16 134/86 98 07/27/20 23:39 97.8 F 88 16 133/83 99 Weight Weight 195 lb 11.269 oz Result Diagrams: 07/28/20 04:53 07/28/20 04:53 Hospitalist ROS - Medication Medications: Active Medications Generic Name Dose Route Start Last Admin Trade Name Freq PRN Reason Stop Dose Admin Amlodipine Besylate 10 mg 07/28/20 09:00 07/28/20 08:34 Amlodipine 10 Mg Tab PO 10 mg DAILY DIMITRI Administration Atorvastatin Calcium 20 mg 07/27/20 21:00 07/27/20 21:11 Atorvastatin Calcium 20 Mg Tab PO 20 mg HS DIMITRI Administration Chlorthalidone 25 mg 07/28/20 09:00 07/28/20 08:34 Chlorthalidone 25 Mg Tab PO 25 mg DAILY DIMITRI Administration Enoxaparin Sodium 40 mg 07/28/20 09:00 07/28/20 08:34 Enoxaparin Sodium 40 Mg/0.4 Ml Syringe SC 40 mg 0900 DIMIRTI Administration Lisinopril/HCTZ 1 tab 07/28/20 09:00 07/28/20 08:34 Lisinopril/Hydrochlorothiazide 20/25 Mg Tablet PO 1 tab DAILY DIMITRI Administration Sodium Chloride 1,000 mls @ 75 mls/hr 07/27/20 17:45 07/28/20 08:39 Normal Saline 0.9% IV 1,000 mls .[id number] DIMITRI Administration Metformin HCl 500 mg 07/28/20 08:00 07/28/20 08:34 Metformin 500 Mg Tab PO 500 mg BID-WM DIMITRI Administration Pantoprazole Sodium 40 mg 07/28/20 09:00 07/28/20 08:34 Pantoprazole 40 Mg Vial IVP 40 mg DAILY DIMITRI Administration - Exam General Appearance: awake alert Neck: no JVD Heart: RRR, no murmur Respiratory - other findings: fine rales diffusely Gastrointestinal: soft, non-distended, normal bowel sounds Extremities: no edema Hosp A/P (1) Dehydration Code(s): E86.0 - DEHYDRATION Status: Acute (2) Atypical pneumonia Code(s): J18.9 - PNEUMONIA, UNSPECIFIED ORGANISM Status: Acute (3) DM2 (diabetes mellitus, type 2) Status: Chronic Qualifiers: Diabetes mellitus halfway insulin use: without halfway use Diabetes mellitus complication status: with hyperglycemia Qualified Code(s): E11.65 - Type 2 diabetes mellitus with hyperglycemia (4) HLD (hyperlipidemia) Code(s): E78.5 - HYPERLIPIDEMIA, UNSPECIFIED Status: Chronic Qualifiers: Hyperlipidemia type: unspecified Qualified Code(s): E78.5 - Hyperlipidemia, unspecified (5) HTN (hypertension) Code(s): I10 - ESSENTIAL (PRIMARY) HYPERTENSION Status: Chronic Qualifiers: Hypertension type: essential hypertension Qualified Code(s): I10 - Essential (primary) hypertension - Plan PNA- cultures pending, cont antibx discuss with pulmonology lactic acidosis-resolved DM2-accu/ss/etc
--- NOTE | 2020-07-28 09:28 | CON ---
DATE OF CONSULTATION: 07/28/2020 CONSULTING PHYSICIAN: Jace Myers MD. REASON FOR CONSULTATION: Recurrent previous pulmonary condition. HISTORY OF PRESENT ILLNESS: Mr. Gaytan is a 65-year-old male, who was first hospitalized here in June with increasing shortness of breath, hemoptysis, and some low-grade fever. Initially, I was concerned that he had miliary tuberculosis, but his AFBs were negative. He was eventually sent home on steroids and doxycycline and cleared up. He came off the steroids Monday and began having more cough and congestion. I am looking at his labs from his last hospitalization and his vasculitis titers were all negative. He has added further history to his previous hospitalization. He lives in [facility], which basically has no floorboards, infested with rats. PAST MEDICAL HISTORY: 1. Peptic ulcer disease. 2. Latent tuberculosis. 3. Diabetes mellitus. 4. Hypothyroidism. 5. Hyperlipidemia. 6. Hypertension. 7. Anxiety. PAST SURGICAL HISTORY: 1. Appendectomy. 2. Colonoscopy with polypectomy. FAMILY HISTORY: had tuberculosis. SOCIAL HISTORY: He used to smoke marijuana. He used to smokes cigarettes and drink alcohol on weekends. Currently unemployed. He was in the [facility] previously. REVIEW OF SYSTEMS: Twelve-point review of systems is otherwise negative. PHYSICAL EXAMINATION: VITAL SIGNS: Temperature 97.7, pulse 90, blood pressure 151/92, O2 saturation 99% on 2 L. GENERAL: He is awake, alert, no distress. HEENT: Unremarkable. NECK: No adenopathy or JVD. LUNGS: Fairly clear. CARDIAC: S1 and S2, regular. ABDOMEN: Soft and nontender. EXTREMITIES: No clubbing, cyanosis, or edema. LABORATORY DATA: White blood cell count 6, hematocrit 46.9, and platelet count 283. Sodium 131, potassium 3.9, chloride 96, CO2 of 26, BUN 19, creatinine 0.8, glucose 143. I compared the CT to his last CT and his reticular nodular changes have definitely improved since that scan. ASSESSMENT: My gut feeling is that the patient has a steroid responsive hypersensitivity pneumonitis from his housing situation. RECOMMENDATIONS: 1. Remove from the housing situation. 2. Restart steroids and taper over a couple of weeks and repeat his x-ray as an outpatient. Should not need open lung biopsy at this time and should be able to go home by tomorrow. Job ID: [id number]
[2020-07-28] MEDS: predniSONE 20 MG TAB PO SCH (11:15)
[2020-07-28 13:30] VITALS: BMI 28.9
--- NOTE | 2020-07-28 16:10 | PQF ---
CLINICAL DOCUMENTATION CLARIFICATION FORM: Dear Dr. Renae Date: 07/28/20 Please exercise your independent, professional judgment in responding to the clarification form. Clinical indicators are provided on the bottom of this form for your review. Please check appropriate box(es): [ ] Aspiration Pneumonia [ ] Empirically treating Gram Negative Pneumonia [ ] Empirically treating Anaerobic Pneumonia [ ] Pneumonia secondary to (specify organism / underlying disease) [ ] Simple Pneumonia [x ] Pneumonia of unknown etiology [ ] Other diagnosis [ ] Unable to determine In addition, please specify: Present on Admission (POA): [ x ] Yes [ ] No [ ] Unable to determine For continuity of documentation, please document condition throughout progress notes and discharge summary. Thank You. To be completed by CDI/Coding staff for physician review: CLINICAL INDICATORS - SIGNS / SYMPTOMS / LABS / RESULTS AND LOCATION IN MR ER NOTE: "ATYPICAL PNEUMONIA" LACTIC ACID 07/27: 2.4 RISK FACTORS / RESULTS AND LOCATION IN MR RECENT HOSPITALIZATION FOR PNEUMONIA (ER NOTE) H/O DIABETES (H&P) PATIENT REPORTS SUBJECTIVE FEVER AT HOME (ER NOTE) TREATMENTS / RESULTS AND LOCATION IN MR IV LEVAQUIN (ER) IV CEFEPIME (ER) IV FLUIDS (ER) PREDNISONE (START 07/27) RECOMMENDATION TO REMOVE FROM HOUSING SITUATION (CONSULT REPORT- HARINDER) CDS Signature: Cierra Hernandez RN Phone #: [phone] Date: 07/28/20 This is a permanent part of the Medical Record [facility]
[2020-07-28] MEDS: Benzonatate 100 MG CAP PO SCH (20:01)
[2020-07-28] MEDS: Atorvastatin Calcium 20 MG TAB PO SCH (20:01)
[2020-07-28] MEDS: Zolpidem Tartrate 5 MG TAB PO PRN (22:08)
--- NOTE | 2020-07-29 08:31 | PDOC.HOSPP ---
- Subjective Encounter Date: 07/29/20 Encounter Time: 08:27 Subjective: comfortable, on 2Li O2 per NC - Objective Vital Signs & Weight: Vital Signs (12 hours) Temp Pulse Resp BP Pulse Ox 07/29/20 08:26 97.9 F 93 14 122/81 98 07/29/20 05:05 97.7 F 80 16 109/68 95 07/28/20 23:18 98.6 F 89 16 132/76 99 Weight Admit Weight 195 lb 11.264 oz Weight 195 lb 11.264 oz I&O: 07/28/20 07/29/20 07/30/20 06:59 06:59 06:59 Intake Total 1825 Balance 1825 Result Diagrams: 07/28/20 04:53 07/28/20 04:53 Additional Labs: Accuchecks 07/29/20 07/28/20 07/28/20 05:15 15:29 10:21 POC Glucose 109 H 124 H 163 H Hospitalist ROS - Medication Medications: Active Medications Generic Name Dose Route Start Last Admin Trade Name Freq PRN Reason Stop Dose Admin Amlodipine Besylate 10 mg 07/28/20 09:00 07/28/20 08:34 Amlodipine 10 Mg Tab PO 10 mg DAILY DIMITRI Administration Atorvastatin Calcium 20 mg 07/27/20 21:00 07/28/20 20:01 Atorvastatin Calcium 20 Mg Tab PO 20 mg HS DIMITRI Administration Benzonatate 100 mg 07/28/20 21:00 07/28/20 20:01 Benzonatate 100 Mg Cap PO 100 mg TID DIMITRI Administration Chlorthalidone 25 mg 07/28/20 09:00 07/28/20 08:34 Chlorthalidone 25 Mg Tab PO 25 mg DAILY DIMITRI Administration Enoxaparin Sodium 40 mg 07/28/20 09:00 07/28/20 08:34 Enoxaparin Sodium 40 Mg/0.4 Ml Syringe SC 40 mg 0900 DIMITRI Administration Lisinopril/HCTZ 1 tab 07/28/20 09:00 07/28/20 08:34 Lisinopril/Hydrochlorothiazide 20/25 Mg Tablet PO 1 tab DAILY DIMITRI Administration Sodium Chloride 1,000 mls @ 75 mls/hr 07/27/20 17:45 07/28/20 22:11 Normal Saline 0.9% IV 1,000 mls .[id number] DIMITRI Administration Metformin HCl 500 mg 07/28/20 08:00 07/28/20 16:25 Metformin 500 Mg Tab PO 500 mg BID-WM DIMITRI Administration Pantoprazole Sodium 40 mg 07/28/20 09:00 07/28/20 08:34 Pantoprazole 40 Mg Vial IVP 40 mg DAILY DIMITRI Administration Prednisone 40 mg 07/28/20 12:00 07/28/20 11:15 Prednisone 20 Mg Tab PO 40 mg 1200 DIMITRI Administration Zolpidem Tartrate 5 mg 07/28/20 09:04 07/28/20 22:08 Zolpidem Tartrate 5 Mg Tab PO 5 mg HSPRN PRN Administration Insomnia - Exam General Appearance: awake alert Neck: no JVD Heart: RRR Respiratory: no wheezes Respiratory - other findings: fine rales posteriorly Gastrointestinal: soft, non-tender, normal bowel sounds Extremities: no edema Hosp A/P (1) Dehydration Code(s): E86.0 - DEHYDRATION Status: Acute (2) Atypical pneumonia Code(s): J18.9 - PNEUMONIA, UNSPECIFIED ORGANISM Status: Acute (3) DM2 (diabetes mellitus, type 2) Status: Chronic Qualifiers: Diabetes mellitus long-term insulin use: without meterman use Diabetes mellitus complication status: with hyperglycemia Qualified Code(s): E11.65 - Type 2 diabetes mellitus with hyperglycemia (4) HLD (hyperlipidemia) Code(s): E78.5 - HYPERLIPIDEMIA, UNSPECIFIED Status: Chronic Qualifiers: Hyperlipidemia type: unspecified Qualified Code(s): E78.5 - Hyperlipidemia, unspecified (5) HTN (hypertension) Code(s): I10 - ESSENTIAL (PRIMARY) HYPERTENSION Status: Chronic Qualifiers: Hypertension type: essential hypertension Qualified Code(s): I10 - Essential (primary) hypertension - Plan PNA- cultures neg, DC antibx Pulmonology suggests hyper sensitivity pneumonitis related to poor lining conditions weam off O2, DC on 4 weeks topering prednisone lactic acidosis-resolved DM2-accu/ss/etc
[2020-07-29] MEDS: Benzonatate 100 MG CAP PO SCH ×3 (08:45→21:08)
[2020-07-29] MEDS: metFORMIN 500 MG TAB PO SCH ×2 (08:45→16:40)
[2020-07-29] MEDS: Enoxaparin Sodium 40 MG/0.4 ML SYRINGE SC SCH (08:46)
[2020-07-29] MEDS: Pantoprazole 40 MG VIAL IVP SCH (08:46)
[2020-07-29] MEDS: Lisinopril/Hydrochlorothiazide 20/25 mg Tablet PO SCH (08:49)
[2020-07-29] MEDS: Amlodipine 10 MG TAB PO SCH (08:50)
[2020-07-29] MEDS: Chlorthalidone 25 MG TAB PO SCH (08:50)
--- NOTE | 2020-07-29 09:21 | PRG ---
DATE OF SERVICE: 07/29/2020 SUBJECTIVE: The patient is coughing up clear sputum. Overall feels a little better. OBJECTIVE: VITAL SIGNS: Temperature 97.9, pulse 93, respirations 14, O2 sat 98% on 2 L, and blood pressure 122/81. HEENT: Unremarkable. NECK: No adenopathy or JVD. LUNGS: Fairly clear. CARDIAC: S1, S2. Regular. ABDOMEN: Soft. EXTREMITIES: No edema. ASSESSMENT: Presumed hypersensitivity pneumonitis from poor living conditions. PLAN: I have added inhaled steroids. Plan to send him home on a tapered dose of prednisone. He will need to follow up in about 4 to 6 weeks with a repeat chest x-ray once discharged. Job ID: [id number]
[2020-07-29] MEDS: predniSONE 20 MG TAB PO SCH (12:07)
[2020-07-29] MEDS: Sodium Chloride 0.9% 1,000 ML IV SCH (12:07)
[2020-07-29] MEDS: Budesonide 0.5 MG/2 ML NEB NEB SCH (19:15)
[2020-07-29] MEDS: Atorvastatin Calcium 20 MG TAB PO SCH (21:08)
[2020-07-29] MEDS: Zolpidem Tartrate 5 MG TAB PO PRN (23:31)
[2020-07-30] MEDS: Sodium Chloride 0.9% 1,000 ML IV SCH ×2 (05:25→11:33)
[2020-07-30] MEDS: Budesonide 0.5 MG/2 ML NEB NEB SCH (07:47)
[2020-07-30] MEDS: Amlodipine 10 MG TAB PO SCH (08:34)
[2020-07-30] MEDS: Lisinopril/Hydrochlorothiazide 20/25 mg Tablet PO SCH (08:34)
[2020-07-30] MEDS: Chlorthalidone 25 MG TAB PO SCH (08:35)
[2020-07-30] MEDS: metFORMIN 500 MG TAB PO SCH (08:35)
[2020-07-30] MEDS: Benzonatate 100 MG CAP PO SCH (08:35)
[2020-07-30] MEDS: Enoxaparin Sodium 40 MG/0.4 ML SYRINGE SC SCH (08:35)
[2020-07-30] MEDS: Pantoprazole 40 MG VIAL IVP SCH (08:46)
--- NOTE | 2020-07-30 09:12 | PRG ---
DATE OF SERVICE: 07/30/2020 SUBJECTIVE: The patient is feeling better and wants to go home. OBJECTIVE: VITAL SIGNS: Temperature 97.5, pulse 80, respirations 18, O2 sat 98% on room air. HEENT: Unremarkable. NECK: No adenopathy or JVD. LUNGS: Clear. CARDIAC: S1, S2. Regular. ABDOMEN: Soft. EXTREMITIES: No edema. ASSESSMENT: Probable hypersensitivity pneumonitis. PLAN: Steroid taper as I have put in the electronic prescriptions on the chart. Followup in 4 to 6 weeks with x-ray. Stable to go home today from my standpoint. Job ID: [id number]
--- NOTE | 2020-07-30 10:15 | DIS ---
DATE OF ADMISSION: 07/27/2020 DATE OF DISCHARGE: 07/30/2020 PRIMARY CARE PROVIDER: Guido Gonzalez MD DISPOSITION: Discharged home. FINAL DIAGNOSES: Atypical pneumonia; acute respiratory failure with hypoxemia, resolved; hypersensitivity pneumonitis; diabetes mellitus, type 2; dyslipidemia; dehydration; hypertension. DISCHARGE MEDICATIONS: 1. Prednisone 40 mg a day, tapering slowly over six weeks. 2. Amlodipine 10 mg a day. 3. Chlorthalidone 25 mg a day. 4. Lipitor 20 mg a day. 5. Protonix 40 mg a day. 6. Metformin 500 mg p.o. b.i.d. ALLERGIES: NONE. HOSPITAL COURSE: The patient readmitted to the hospital after an episode of atypical pneumonia. He had been out of the hospital briefly. When he returned, he was seen in consultation by Dr. Syed Wilson, who made a diagnosis of probable hypersensitivity pneumonitis due to the patient's living conditions. To the start, he does not have a floor in his house. His initial radiograph demonstrated reticulonodular opacities, atypical pneumonia, actually improved since last radiograph on 07/06/2020. His laboratory; white count 7.2, hemoglobin 17.2, platelet count 319. His serology was negative again. His comprehensive metabolic profile showed a mild metabolic acidosis. BUN and creatinine were adequate, had mild transaminase elevations. He improved dramatically steroids. He is now not requiring O2. His vital signs are stable. His O2 saturation is now 98 on room air. He is being discharged home to follow up with his PCP in 3 to 7 days. Follow up with Dr. Wilson in 4 to 6 weeks with a chest x-ray. He has been advised by myself and by Dr. Wilson to avoid going to his house as it is suspected that the conditions of his house are aggravating his problem. He is going home to stay with family for the time being. Job ID: [id number]
[2020-07-30 10:21] VITALS: TEMP 97.6
[2020-07-30] MEDS: predniSONE 20 MG TAB PO SCH (11:10)
[2020-07-30 12:58] VITALS: BP 123/75
--- NOTE | 2020-08-01 10:08 | EKG ---
Test Reason : Blood Pressure : / mmHG Vent. Rate : 113 BPM Atrial Rate : 113 BPM P-R Int : 138 ms QRS Dur : 080 ms QT Int : 328 ms P-R-T Axes : 054 261 026 degrees QTc Int : 449 ms Sinus tachycardia with Premature atrial complexes with Abberant conduction Possible Left atrial enlargement Right superior axis deviation Abnormal ECG Confirmed by LEW YANG, BENNETT Gil ([id number]), news copy editor JUANCHO DEAN ([id number]) on 08/01/2020 10:08:00 AM Referred By: Confirmed By:BENNETT HACKETT MD
--- NOTE | 2020-08-03 06:34 | PQF ---
CLINICAL DOCUMENTATION CLARIFICATION FORM: Dear : Lay Renae Date / Time: 08/03/20 Please exercise your independent, professional judgment in responding to the clarification form. Clinical indicators are provided on the bottom of this form for your review Please check appropriate box(es): [ ] Sepsis [ ] Severe Sepsis [ x ] Localized infection without sepsis [ ] Other diagnosis, please specify [ ] Unable to determine In addition, please specify: Present on Admission (POA): [ ] Yes [ ] No [ ] Unable to determine Physician Signature: Date/Time: For continuity of documentation, please document condition throughout progress notes and discharge summary. Thank You. To be completed by CDI/Coding staff for physician review: Present Clinical Indicators - Signs / Symptoms / Labs Results and Location in Medical Record [x] Atypical PNA DS 07/30 [x] Acute respiratory failure DS 07/30 [x] Chest Xray: concerning for an atypical viral or TB infection Chest Xray 07/27 [x] Temp=98.5 Evewu=330 GT=479/92 Respi=16 Vital Signs 07/28 [x] WBC: 07/27=7.2 07/28=6.0 Laboratory 07/27 [x] Lactic: 07/27=2.4 Laboratory 07/27 [x] Blood culture: no growth Laboratory 07/27 [x] Lactic Acidosis PN 07/28 Present Risk Factors Results and Location in Medical Record [x] Atypical PNA DS 07/30 [x] DM DS 07/30 [x] Former Smoker HP 07/27 [x] 65 years old male HP 07/27 Present Treatments Results and Location in Medical Record [x] Cefepime 2gm IV SEP 14 [x] IVF SEP 14 [x] Levaquin 750mg IV SEP 14 [x] Pulmonology Consul Consult 07/27 CDS/Machine Brush Maker Signature: Alvaro Butlerlucho Root Phone #: [phone] Date/Time: 08/03/20 This is a permanent part of the Medical Record [facility]
== END 2020-07-30 13:08 | disposition home or self-care (01) | DRG 196 ==
LOC: ERS 14:17 → SURG A 19:42 → OBSVTOIN 19:42
PROVIDERS: ADMIT Internal Medicine; ATTEND Internal Medicine
DX: J67.9 Hypersensitivity pneumonitis due to unspecified organic dust (principal); J96.01 Acute respiratory failure with hypoxia; E87.2 Acidosis; Z20.822 Contact with and (suspected) exposure to COVID-19; E03.9 Hypothyroidism, unspecified; E78.5 Hyperlipidemia, unspecified; I10 Essential (primary) hypertension; F41.9 Anxiety disorder, unspecified; E86.0 Dehydration; E11.65 Type 2 diabetes mellitus with hyperglycemia; Z79.84 Long term (current) use of oral hypoglycemic drugs; Z79.82 Long term (current) use of aspirin; Z79.899 Other long term (current) drug therapy; Z87.11 Personal history of peptic ulcer disease; Z90.49 Acquired absence of other specified parts of digestive tract; Z87.891 Personal history of nicotine dependence; Z22.7 Latent tuberculosis
CPT/HCPCS: 0240U; 36415; 36416; 71045; 71275; 80048; 80053; 83605; 83690; 83880; 84484; 85025; 87040; 93005; 94640; 96365; 96366; 96367; 96372; 96375; C9113; G0378; J0692; J1650; J1956; J3490; J7512; J7626; Q9967

== ENCOUNTER 2020-10-02 10:23 | Inpatient (IN) | payer MEDICARE, MEDICAID ==
[2020-10-02 10:45] LABS: #Eosinphils 0.2 thou/uL (0.0-0.7); #Lymphocytes 2.7 thou/uL (1.20-3.40); #Monocytes 0.8 thou/uL (0.11-0.59); #Neutrophils 7.1 thou/uL (1.40-6.50); %Basophils 0.1 % (0.0-1.0); %Eosinophils 1.9 % (0.0-10.0); %Lymphocytes 24.7 % (21.0-51.0); %Monocytes 7.4 % (0.0-10.0); Hemoglobin 13.9 g/dL (14.0-18.0); Mean Corpuscular HGB CONC 32.5 g/dL (32.0-36.0); Mean Corpuscular Hemoglobin 28.5 pg (27.0-31.0); Mean Corpuscular Volume 87.8 fL (78.0-98.0); Mean Platelet Volume 8.3 fL (7.4-10.4); Platelet Count 293 thou/uL (130-400); RBC Distribution Width 14.9 % (11.5-14.5); Red Blood Cell (RBC) Count 4.87 mill/uL (4.70-6.10); White Blood Cell (WBC) Count 10.8 thou/uL (4.8-10.8)
[2020-10-02] MEDS ORDERED: Iopamidol-370 76% 500 ML 1 ML ONE (12:10)
[2020-10-02 12:51] LABS: INR-International Normal Ratio 1.1; PTT 30.3 sec (22.9-36.1)
[2020-10-02 14:16] LABS: Calcium 8.1 mg/dL (7.8-10.44); Chloride 103 mmol/L (98-107); Potassium 3.6 mmol/L (3.5-5.1); Sodium 137 mmol/L (136-145)
[2020-10-02 14:17] LABS: Globulin 2.3 g/dL (2.4-3.5); Glucose 110 mg/dL (80-115); Protein, Total 5.3 g/dL (5.8-8.1)
[2020-10-02 14:19] LABS: Anion Gap 13 mmol/L (10-20); Bilirubin, Total 0.5 mg/dL (0.2-1.2); Carbon Dioxide 25 mmol/L (23-31)
[2020-10-02 14:20] LABS: Alkaline Phosphatase 64 U/L (40-110); Calc. Creatinine Clearance 0 mL/min (70-130)
[2020-10-02] MEDS ORDERED: Dextrose 5% in Water 1,000 ML IV PRN (14:20)
[2020-10-02] MEDS ORDERED: HumaLOG 300 UNITS/3 ML VIAL SC PRN ×2 (14:20)
[2020-10-02] MEDS ORDERED: Dextrose 50% Abboject 50 ML SYRINGE SLOW IVP PRN (14:20)
[2020-10-02 14:21] LABS: BUN (Urea Nitrogen) 6 mg/dL (8.4-25.7)
[2020-10-02 14:22] LABS: AST (SGOT) 15 U/L (5-34)
[2020-10-02 14:23] LABS: ALT (SGPT) 13 U/L (8-55)
[2020-10-02] MEDS ORDERED: Pantoprazole 40 MG VIAL IVP SCH (14:30)
[2020-10-02 15:26] VITALS: BMI 29.6
[2020-10-02] MEDS: Sodium Chloride 0.9% 1,000 ML IV SCH (15:37)
[2020-10-02] MEDS: Ondansetron PF 4 MG/2 ML Vial IVP PRN (15:39)
[2020-10-02 16:45] LABS: Hemoglobin 11.7 g/dL (14.0-18.0)
[2020-10-02 17:08] LABS: Iron 37 ug/dL (65-175); Iron Binding Capacity, Total 220 mcg/dL (261-462)
[2020-10-02] MEDS: Acetaminophen 325 MG TAB PO PRN (17:23)
[2020-10-02] MEDS ORDERED: GoLYTELY 4,000 ml Bottle PO SCH (17:30)
[2020-10-02] MEDS: Pantoprazole 40 MG VIAL IVP SCH (20:20)
[2020-10-02 21:58] LABS: Hemoglobin 10.2 g/dL (14.0-18.0)
[2020-10-02 23:53] LABS: SARS-CoV-2 PCR by NAA Not Detected (NotDetected)
[2020-10-03] MEDS ORDERED: Magnesium 2 GM/50 ML 2 GM in Premix Bag 1 BAG IVPB SCH (01:30)
[2020-10-03] MEDS: Sodium Chloride 0.9% 1,000 ML IV SCH ×2 (01:49→18:00)
[2020-10-03 06:05] LABS: #Eosinphils 0.1 thou/uL (0.0-0.7); #Lymphocytes 2.4 thou/uL (1.20-3.40); #Monocytes 0.8 thou/uL (0.11-0.59); #Neutrophils 5.5 thou/uL (1.40-6.50); %Basophils 0.4 % (0.0-1.0); %Eosinophils 1.4 % (0.0-10.0); %Lymphocytes 26.9 % (21.0-51.0); %Monocytes 8.8 % (0.0-10.0); %Neutrophils 62.4 % (42.0-75.0); Hemoglobin 9.5 g/dL (14.0-18.0); Mean Corpuscular HGB CONC 32.4 g/dL (32.0-36.0); Mean Corpuscular Hemoglobin 28.3 pg (27.0-31.0); Mean Corpuscular Volume 87.3 fL (78.0-98.0); Mean Platelet Volume 7.3 fL (7.4-10.4); Platelet Count 293 thou/uL (130-400); RBC Distribution Width 14.3 % (11.5-14.5); Red Blood Cell (RBC) Count 3.36 mill/uL (4.70-6.10); White Blood Cell (WBC) Count 8.8 thou/uL (4.8-10.8)
[2020-10-03 06:30] LABS: Anion Gap 14 mmol/L (10-20); BUN (Urea Nitrogen) 6 mg/dL (8.4-25.7); Calc. Creatinine Clearance 130 mL/min (70-130); Calcium 7.9 mg/dL (7.8-10.44); Carbon Dioxide 26 mmol/L (23-31); Chloride 101 mmol/L (98-107); Glucose 115 mg/dL (80-115); Potassium 3.5 mmol/L (3.5-5.1); Sodium 137 mmol/L (136-145)
[2020-10-03] MEDS ORDERED: Ondansetron PF 4 MG/2 ML Vial ONE (07:59)
[2020-10-03] MEDS ORDERED: Famotidine/PF 20 mg/2ml Vial ONE (07:59)
[2020-10-03] MEDS ORDERED: PROPOFOL 200 MG/20 ML VIAL ONE (08:20)
[2020-10-03] MEDS ORDERED: Promethazine HCl 25 MG/ML VIAL IM PRN (08:53)
[2020-10-03] MEDS ORDERED: Ondansetron HCl/PF 4 MG/2 ML Vial IVP PRN (08:53)
[2020-10-03] MEDS ORDERED: Promethazine HCl 25 MG/ML VIAL SLOW IVP PRN (08:53)
[2020-10-03] MEDS ORDERED: FLU VACC QS2020-21(65YR UP)/PF 240 MCG/0.7 ML SYRINGE IM ONE (09:00)
[2020-10-03] MEDS: Atorvastatin Calcium 20 MG TAB PO SCH (09:30)
[2020-10-03] MEDS: Pantoprazole 40 MG VIAL IVP SCH ×2 (09:31→20:30)
[2020-10-03] MEDS: Benzonatate 100 MG CAP PO PRN ×2 (11:12→20:28)
[2020-10-03] MEDS: Ondansetron PF 4 MG/2 ML Vial IVP PRN (15:33)
[2020-10-03] MEDS ORDERED: Polyethylene Glycol OPTH DROP 15 ML BOT EA EYE PRN (16:23)
[2020-10-03] MEDS: Acetaminophen 325 MG TAB PO PRN (20:29)
[2020-10-03] MEDS: Cepastat Lozenges 1 LOZ PO PRN (20:42)
[2020-10-04] MEDS: Cepastat Lozenges 1 LOZ PO PRN (05:29)
[2020-10-04] MEDS: Sodium Chloride 0.9% 1,000 ML IV SCH (05:29)
[2020-10-04] MEDS: Benzonatate 100 MG CAP PO PRN (05:29)
[2020-10-04 07:13] VITALS: BP 149/78; TEMP 98.1
[2020-10-04 08:02] LABS: #Eosinphils 0.3 thou/uL (0.0-0.7); #Lymphocytes 1.4 thou/uL (1.20-3.40); #Monocytes 0.7 thou/uL (0.11-0.59); #Neutrophils 3.6 thou/uL (1.40-6.50); %Basophils 0.2 % (0.0-1.0); %Eosinophils 4.4 % (0.0-10.0); %Lymphocytes 22.9 % (21.0-51.0); %Monocytes 11.2 % (0.0-10.0); %Neutrophils 61.2 % (42.0-75.0); Hemoglobin 9.4 g/dL (14.0-18.0); Mean Corpuscular HGB CONC 33.7 g/dL (32.0-36.0); Mean Corpuscular Hemoglobin 29.5 pg (27.0-31.0); Mean Corpuscular Volume 87.4 fL (78.0-98.0); Platelet Count 271 thou/uL (130-400); RBC Distribution Width 14.1 % (11.5-14.5); White Blood Cell (WBC) Count 5.9 thou/uL (4.8-10.8)
[2020-10-04 08:22] LABS: Anion Gap 11 mmol/L (10-20); BUN (Urea Nitrogen) 4 mg/dL (8.4-25.7); Calc. Creatinine Clearance 127 mL/min (70-130); Calcium 8.5 mg/dL (7.8-10.44); Carbon Dioxide 28 mmol/L (23-31); Chloride 103 mmol/L (98-107); Glucose 117 mg/dL (80-115); Potassium 3.5 mmol/L (3.5-5.1); Sodium 138 mmol/L (136-145)
[2020-10-04] MEDS: Atorvastatin Calcium 20 MG TAB PO SCH (09:00)
[2020-10-04] MEDS: Pantoprazole 40 MG VIAL IVP SCH (09:00)
[2020-10-05] MEDS ORDERED: Ferrous Sulfate 325 MG TAB PO SCH (09:00)
== END 2020-10-04 12:10 | disposition home or self-care (01) | DRG 378 ==
LOC: SUATTDRO 10:23 → ERS 10:23 → T4-A 14:09 → OBSVTOIN 10-03 08:47
PROVIDERS: ADMIT Internal Medicine; ATTEND Hospitalist
PROC: 0DJD8ZZ Inspection of Lower Intestinal Tract, Via Natural or Artificial Opening Endoscopic (ICD-10-PCS; principal; 2020-10-03)
DX: K92.2 Gastrointestinal hemorrhage, unspecified (principal); D62 Acute posthemorrhagic anemia; E11.9 Type 2 diabetes mellitus without complications; E03.9 Hypothyroidism, unspecified; E78.5 Hyperlipidemia, unspecified; I10 Essential (primary) hypertension; K57.30 Diverticulosis of large intestine without perforation or abscess without bleeding; Z20.822 Contact with and (suspected) exposure to COVID-19; K64.8 Other hemorrhoids; E83.42 Hypomagnesemia; Z90.49 Acquired absence of other specified parts of digestive tract; Z80.0 Family history of malignant neoplasm of digestive organs
CPT/HCPCS: 36415; 36416; 74177; 80048; 80053; 82274; 82728; 83540; 83550; 83735; 85025; 85610; 85730; 86850; 86900; 86901; 87635; 90471; 90662; 96374; 96375; 96376; C9113; G0008; G0378; J2405; J2704; J3475; J7620; Q9967; S0028; U0003; U0005

== ENCOUNTER 2022-07-24 02:12 | Emergency (ER) | payer MEDICARE, MEDICAID ==
[2022-07-24 02:54] LABS: #Basophils 0.1 thou/uL (0.0-0.2); #Lymphocytes 0.2 thou/uL (1.20-3.40); #Monocytes 0.6 thou/uL (0.11-0.59); #Neutrophils 9.8 thou/uL (1.40-6.50); %Eosinophils 0.4 % (0.0-10.0); %Lymphocytes 1.8 % (21.0-51.0); %Monocytes 5.5 % (0.0-10.0); %Neutrophils 91.3 % (42.0-75.0); Hemoglobin 15.1 g/dL (14.0-18.0); Mean Corpuscular HGB CONC 34.6 g/dL (32.0-36.0); Mean Corpuscular Hemoglobin 30.1 pg (27.0-31.0); Mean Corpuscular Volume 87.1 fl (78.0-98.0); Mean Platelet Volume 7.9 fL (7.4-10.4); Platelet Count 237 10x3/uL (130-400); RBC Distribution Width 11.9 % (11.5-14.5); Red Blood Cell (RBC) Count 5.01 mill/uL (4.70-6.10); White Blood Cell (WBC) Count 10.7 10x3/uL (4.8-10.8)
[2022-07-24 03:16] LABS: ALT (SGPT) 30 U/L (8-55); AST (SGOT) 34 U/L (5-34); Albumin 4.3 g/dL (3.4-4.8); Alkaline Phosphatase 89 U/L (40-110); Anion Gap 15 mmol/L (10-20); BUN (Urea Nitrogen) 12 mg/dL (8.4-25.7); Bilirubin, Total 0.4 mg/dL (0.2-1.2); Calc. Creatinine Clearance 0 mL/min (70-130); Calcium 8.9 mg/dL (7.8-10.44); Carbon Dioxide 24 mmol/L (23-31); Chloride 103 mmol/L (98-107); Estimated GFR 94; Globulin 3.1 g/dL (2.4-3.5); Glucose 117 mg/dL (80-115); Lipase 19 U/L (8-78); Potassium 3.9 mmol/L (3.5-5.1); Protein, Total 7.4 g/dL (5.8-8.1); Sodium 138 mmol/L (136-145)
[2022-07-24] MEDS ORDERED: Metoclopramide HCl 10 MG/2 ML VIAL ONE (03:46)
[2022-07-24] MEDS ORDERED: diphenhydrAMINE 50 MG/ML VIAL ONE (03:46)
== END 2022-07-24 06:26 | disposition home or self-care (01) ==
LOC: ERS 02:12
DX: R11.2 Nausea with vomiting, unspecified (principal); E11.9 Type 2 diabetes mellitus without complications; E03.9 Hypothyroidism, unspecified; E78.5 Hyperlipidemia, unspecified; I10 Essential (primary) hypertension
CPT/HCPCS: 36415; 71045; 80053; 80178; 83690; 85025; 93005; 94760; 96374; 96375; J1200; J2765

== ENCOUNTER 2022-10-24 14:58 | Outpatient (CLI) | payer MEDICARE, MEDICAID ==
[2022-10-24 16:38] LABS: Bilirubin Neg (Negative); Blood, Urine Negative (Negative); Clarity Clear (Clear); Glucose, Urine (Dipstick) Normal (Negative); Ketone, Urine Negative (Negative); Leukocyte Negative (Negative); Nitrite Negative (Negative); Protein, Urine (Dipstick) 30 mg/dl (Neg-Trace); Specific Gravity, Urine 1.015 (1.005-1.030); Urobilinogen Normal mg/dL (Less than 2)
[2022-10-24 16:56] LABS: Hemoglobin 14.2 g/dL (13.5-17.5); Mean Corpuscular Hemoglobin 26.7 pg (27.0-33.0); Mean Corpuscular Volume 83.5 fl (81.2-95.1); Mean Platelet Volume 10.8 fl (7.4-10.4); Platelet Count 302 10x3/uL (150-450); RBC Distribution Width 13.9 % (11.5-14.5); Red Blood Cell (RBC) Count 5.32 10x6/uL (4.32-5.72); White Blood Cell (WBC) Count 5.7 10x3/uL (3.5-10.5)
[2022-10-24 17:01] LABS: Bacteria/HPF None Seen HPF (None Seen); RBC/HPF None Seen HPF (0-3); Squamous Epithelial None Seen HPF (0-3); WBC/HPF 0-3 HPF (0-3)
[2022-10-24 17:10] LABS: Anion Gap 17 mmol/L (10-20); BUN (Urea Nitrogen) 12 mg/dL (8.4-25.7); Calc. Creatinine Clearance 0 mL/min (70-130); Calcium 9.7 mg/dL (7.8-10.44); Carbon Dioxide 25 mmol/L (23-31); Chloride 102 mmol/L (98-107); Estimated GFR 82; Glucose 86 mg/dL (80-115); Potassium 4.1 mmol/L (3.5-5.1); Sodium 140 mmol/L (136-145)
[2022-10-24 17:12] LABS: PTT 29.9 sec (22.0-33.0)
== END 2022-10-24 14:59 | disposition home or self-care (01) ==
LOC: LABBT 14:58
PROVIDERS: ATTEND Urology
DX: Z01.818 Encounter for other preprocedural examination (principal); Z12.5 Encounter for screening for malignant neoplasm of prostate; R97.20 Elevated prostate specific antigen [PSA]; E11.9 Type 2 diabetes mellitus without complications; F12.90 Cannabis use, unspecified, uncomplicated; R35.0 Frequency of micturition
CPT/HCPCS: 71046; 80048; 81001; 84153; 85027; 85610; 85730; 87086; 93005; 93010

== ENCOUNTER 2022-11-02 05:48 | Day surgery (SDC) | payer MEDICARE, MEDICAID ==
[2022-11-01 09:40] VITALS: BMI 32.6
[2022-11-02] MEDS ORDERED: fentaNYL PF 100 MCG/2 ML SYRINGE ONE (06:56)
[2022-11-02] MEDS ORDERED: Dexmedetomidine 200 MCG/2 ML VIAL ONE (06:57)
[2022-11-02] MEDS ORDERED: Levofloxacin 500 mg/D5W 100 ml Premix Bag ONE (07:03)
[2022-11-02] MEDS ORDERED: Sodium Chloride 0.9% 100 ML ONE (07:25)
[2022-11-02] MEDS ORDERED: cefTRIAXone (ROCEPHIN) 2 GM VIAL ONE (07:25)
[2022-11-02] MEDS ORDERED: NEOSTIGMINE 3 MG/3 ML SYR 3 MG/3 ML SYRINGE ONE (07:38)
[2022-11-02] MEDS ORDERED: GLYCOPYRROLATE/PF 0.2 MG/ML VIAL ONE (07:38)
[2022-11-02] MEDS ORDERED: PROPOFOL 200 MG/20 ML VIAL ONE (07:38)
[2022-11-02] MEDS ORDERED: Rocuronium Bromide 10 MG/ML (10ML VIAL) ONE (07:38)
[2022-11-02] MEDS ORDERED: Ondansetron PF 4 MG/2 ML Vial ONE (07:38)
[2022-11-02] MEDS ORDERED: SUGAMMADEX SODIUM 200 MG/2 ML VIAL ONE (08:05)
[2022-11-02] MEDS ORDERED: Phenazopyridine HCl 100 MG TAB ONE (08:18)
[2022-11-02] MEDS ORDERED: Oxybutynin 5 MG TAB ONE (08:19)
[2022-11-02] MEDS ORDERED: Tamsulosin HCl 0.4 MG CAP ONE (08:20)
[2022-11-02] MEDS ORDERED: Promethazine HCl 25 MG/ML VIAL ONE (08:39)
== END 2022-11-02 12:30 | disposition home or self-care (01) ==
LOC: SDC 05:48
PROVIDERS: ATTEND Urology
PROC: 0VB07ZX Excision of Prostate, Via Natural or Artificial Opening, Diagnostic (ICD-10-PCS; principal; 2022-11-02)
DX: C61 Malignant neoplasm of prostate (principal); N42.89 Other specified disorders of prostate; N40.1 Benign prostatic hyperplasia with lower urinary tract symptoms; R35.0 Frequency of micturition; R39.12 Poor urinary stream; I10 Essential (primary) hypertension; E11.9 Type 2 diabetes mellitus without complications; E78.5 Hyperlipidemia, unspecified; E03.9 Hypothyroidism, unspecified; Z87.891 Personal history of nicotine dependence; Z79.84 Long term (current) use of oral hypoglycemic drugs; Z79.899 Other long term (current) drug therapy
CPT/HCPCS: 55700; J3490; 88341; 88342; G0416; J0696; J1956; J2405; J2550; J2704

== ENCOUNTER 2023-04-05 10:02 | Inpatient (IN) | payer MEDICARE, MEDICAID ==
[2023-04-17] MEDS ORDERED: Bupivacaine 0.25% HCL 30 ML VIAL ONE (06:33)
[2023-04-17] MEDS ORDERED: Fentanyl 250 MCG/5 ML VIAL ONE (06:33)
[2023-04-17] MEDS ORDERED: Phenylephrine 10 MG/ML VIAL ONE ×2 (06:33→12:27)
[2023-04-17] MEDS ORDERED: LevoFLOXacin 500 mg/D5W 100 ML BAG ONE (06:36)
[2023-04-17] MEDS ORDERED: cefOXitin Sodium 1 GM in Sodium Chloride 0.9% 100 ML IVPB SCH (06:45)
[2023-04-17] MEDS ORDERED: Ondansetron HCl/PF 4 MG/2 ML Vial IVP PRN ×2 (07:24→10:05)
[2023-04-17] MEDS ORDERED: Promethazine HCl 25 MG/ML VIAL IM PRN ×2 (07:24→10:05)
[2023-04-17] MEDS ORDERED: ePHEDrine Sulfate 50 MG/10 ML VIAL ONE (07:38)
[2023-04-17] MEDS ORDERED: PHENYLEPHRINE-NS 100 MCG/ML 10 ML SYRINGE ONE (07:38)
[2023-04-17] MEDS ORDERED: Bupivacaine HCl 0.5%/Epinephrine 1:200,000/PF 30 ml Vial ONE (07:38)
[2023-04-17] MEDS ORDERED: PROPOFOL 200 MG/20 ML VIAL ONE (07:38)
[2023-04-17] MEDS ORDERED: Rocuronium Bromide 10 MG/ML (10ML VIAL) ONE (07:38)
[2023-04-17] MEDS ORDERED: Lidocaine 1% PF 5 ML VIAL ONE (07:38)
[2023-04-17] MEDS ORDERED: Bupivacaine PF 0.5% 30 ML VIAL ONE (09:51)
[2023-04-17] MEDS ORDERED: HYDROmorphone 2 MG/ML VIAL SLOW IVP PRN (10:05)
[2023-04-17] MEDS ORDERED: ceFOXitin 1 GM VIAL ONE ×2 (10:13→12:00)
[2023-04-17] MEDS ORDERED: SUGAMMADEX SODIUM 200 MG/2 ML VIAL ONE (12:00)
[2023-04-17] MEDS ORDERED: Albumin 5% 0 ML ONE (12:00)
[2023-04-17] MEDS ORDERED: HYDROcodone/Acetaminophen 10/325 mg Tablet PO PRN (14:06)
[2023-04-17] MEDS ORDERED: hydrALAZINE 20 MG/ML VIAL SLOW IVP PRN (14:06)
[2023-04-17] MEDS ORDERED: Zolpidem Tartrate 5 MG TAB PO PRN (14:06)
[2023-04-17] MEDS ORDERED: Morphine 2 MG/ML VIAL SLOW IVP PRN (14:06)
[2023-04-17] MEDS ORDERED: Acetaminophen 500 MG TAB PO PRN (14:06)
[2023-04-17] MEDS ORDERED: diphenhydrAMINE 50 MG/ML VIAL IVP PRN (14:06)
[2023-04-17] MEDS ORDERED: Oxybutynin 5 MG TAB PO PRN (14:06)
[2023-04-17] MEDS ORDERED: Mag-Al 1200 mg/1200 mg/30 ML UDCUP PO PRN (14:06)
[2023-04-17] MEDS ORDERED: Albuterol 200 PUFF (6.7GM INHALER) INH PRN (14:10)
[2023-04-17] MEDS ORDERED: Dextrose 50% Abboject 50 ML SYRINGE SLOW IVP PRN (14:11)
[2023-04-17] MEDS ORDERED: Glucagon 1 MG/ML KIT IM PRN (14:11)
[2023-04-17] MEDS ORDERED: Dextrose 5% in Water 1,000 ML IV PRN (14:11)
[2023-04-17] MEDS ORDERED: Insulin Regular 300 UNITS/3 ML VIAL SC PRN (14:11)
[2023-04-17] MEDS ORDERED: Sodium Chloride 0.9% 1,000 ML IV SCH (14:15)
[2023-04-17 14:52] LABS: #Monocytes 0.6 thou/uL (0.11-0.59); #Neutrophils 10.9 thou/uL (1.40-6.50); %Basophils 0.2 % (0.0-1.0); %Eosinophils 0.1 % (0.0-10.0); %Neutrophils 87.2 % (42.0-75.0); Hematocrit 36.4 % (42.0-52.0); Hemoglobin 11.9 g/dL (14.0-18.0); Mean Corpuscular HGB CONC 32.7 g/dL (32.0-36.0); Mean Corpuscular Hemoglobin 27.7 pg (27.0-31.0); Mean Corpuscular Volume 84.7 fl (78.0-98.0); Mean Platelet Volume 9.7 fL (7.4-10.4); Platelet Count 282 10x3/uL (130-400); RBC Distribution Width 13.4 % (11.5-14.5); White Blood Cell (WBC) Count 12.5 10x3/uL (4.8-10.8)
[2023-04-17] MEDS ORDERED: Ondansetron PF 4 MG/2 ML Vial ONE (14:57)
[2023-04-17] MEDS ORDERED: fentaNYL 50 mcg/mL 1 mL Vial ONE (15:09)
[2023-04-17 15:13] LABS: Anion Gap 16 mmol/L (10-20); BUN (Urea Nitrogen) 11 mg/dL (8.4-25.7); Calc. Creatinine Clearance 62 mL/min (70-130); Calcium 8.6 mg/dL (7.8-10.44); Carbon Dioxide 21 mmol/L (23-31); Chloride 106 mmol/L (98-107); Estimated GFR 49; Glucose 157 mg/dL (80-115); Potassium 3.5 mmol/L (3.5-5.1); Sodium 139 mmol/L (136-145)
[2023-04-17] MEDS: HYDROcodone/Acetaminophen 10/325 mg Tablet PO PRN ×2 (17:36→21:05)
[2023-04-17 18:30] VITALS: BMI 30.7
[2023-04-17] MEDS: Sodium Chloride 0.9% 1,000 ML IV SCH ×2 (19:48→23:00)
[2023-04-17] MEDS: Ondansetron PF 4 MG/2 ML Vial IVP PRN (19:53)
[2023-04-17] MEDS: Docusate 100 MG CAP PO SCH (21:04)
[2023-04-17] MEDS: Famotidine/PF 20 mg/2ml Vial SLOW IVP SCH (21:04)
[2023-04-17] MEDS: Famotidine 20 MG TAB PO SCH (21:04)
[2023-04-18] MEDS: HYDROcodone/Acetaminophen 10/325 mg Tablet PO PRN ×2 (03:13→10:26)
[2023-04-18] MEDS: cefTRIAXone\\ROCEPHIN 1 GM in Sodium Chloride 0.9% 100 ML IVPB SCH (05:18)
[2023-04-18 05:58] LABS: #Eosinphils 0.1 thou/uL (0.0-0.7); #Monocytes 0.8 thou/uL (0.11-0.59); #Neutrophils 7.8 thou/uL (1.40-6.50); %Basophils 0.2 % (0.0-1.0); %Eosinophils 0.5 % (0.0-10.0); %Lymphocytes 13.5 % (21.0-51.0); %Monocytes 7.9 % (0.0-10.0); %Neutrophils 77.5 % (42.0-75.0); Hematocrit 34.4 % (42.0-52.0); Hemoglobin 11.2 g/dL (14.0-18.0); Mean Corpuscular HGB CONC 32.6 g/dL (32.0-36.0); Mean Corpuscular Hemoglobin 27.5 pg (27.0-31.0); Mean Corpuscular Volume 84.3 fl (78.0-98.0); Mean Platelet Volume 9.6 fL (7.4-10.4); Platelet Count 236 10x3/uL (130-400); RBC Distribution Width 13.6 % (11.5-14.5); Red Blood Cell (RBC) Count 4.08 mill/uL (4.70-6.10)
[2023-04-18 06:50] LABS: Chloride 109 mmol/L (98-107); Potassium 3.6 mmol/L (3.5-5.1); Sodium 140 mmol/L (136-145)
[2023-04-18 06:51] LABS: Anion Gap 11 mmol/L (10-20); BUN (Urea Nitrogen) 10 mg/dL (8.4-25.7); Calc. Creatinine Clearance 88 mL/min (70-130); Carbon Dioxide 24 mmol/L (23-31); Estimated GFR 76; Glucose 102 mg/dL (80-115)
[2023-04-18] MEDS: Ondansetron PF 4 MG/2 ML Vial IVP PRN (06:52)
[2023-04-18] MEDS: Polyethylene Glycol 3350 17 GM Packet PO SCH (10:24)
[2023-04-18] MEDS: Alogliptin 6.25 MG TAB PO SCH (10:24)
[2023-04-18] MEDS: Amlodipine 10 MG TAB PO SCH (10:25)
[2023-04-18] MEDS: Losartan 25 MG TAB PO SCH (10:25)
[2023-04-18] MEDS: Famotidine 20 MG TAB PO SCH ×2 (10:25→20:25)
[2023-04-18] MEDS: Atorvastatin Calcium 20 MG TAB PO SCH (10:25)
[2023-04-18] MEDS: Docusate 100 MG CAP PO SCH ×2 (10:26→20:25)
[2023-04-18] MEDS: Famotidine/PF 20 mg/2ml Vial SLOW IVP SCH ×2 (10:26→22:14)
[2023-04-18] MEDS: FLUoxetine HCl 10 MG CAP PO SCH (13:54)
[2023-04-18] MEDS: Sodium Chloride 0.9% 1,000 ML IV SCH ×2 (13:54→20:25)
[2023-04-18] MEDS: Metoclopramide HCl 10 MG/2 ML VIAL IVP SCH ×2 (14:24→20:25)
[2023-04-19] MEDS: HYDROcodone/Acetaminophen 10/325 mg Tablet PO PRN ×2 (00:05→18:13)
[2023-04-19] MEDS: Sodium Chloride 0.9% 1,000 ML IV SCH ×2 (00:12→07:48)
[2023-04-19 05:03] LABS: #Eosinphils 0.3 thou/uL (0.0-0.7); #Monocytes 0.6 thou/uL (0.11-0.59); #Neutrophils 7.5 thou/uL (1.40-6.50); %Basophils 0.4 % (0.0-1.0); %Eosinophils 3.4 % (0.0-10.0); %Lymphocytes 14.9 % (21.0-51.0); %Monocytes 6.2 % (0.0-10.0); %Neutrophils 74.9 % (42.0-75.0); Mean Corpuscular HGB CONC 32.4 g/dL (32.0-36.0); Mean Corpuscular Hemoglobin 27.6 pg (27.0-31.0); Mean Corpuscular Volume 85.4 fl (78.0-98.0); Mean Platelet Volume 9.6 fL (7.4-10.4); Platelet Count 238 10x3/uL (130-400); RBC Distribution Width 13.7 % (11.5-14.5); Red Blood Cell (RBC) Count 3.98 mill/uL (4.70-6.10)
[2023-04-19] MEDS: cefTRIAXone\\ROCEPHIN 1 GM in Sodium Chloride 0.9% 100 ML IVPB SCH (05:14)
[2023-04-19] MEDS: Metoclopramide HCl 10 MG/2 ML VIAL IVP SCH ×3 (05:15→22:32)
[2023-04-19 05:31] LABS: Anion Gap 11 mmol/L (10-20); BUN (Urea Nitrogen) 5 mg/dL (8.4-25.7); Calc. Creatinine Clearance 115 mL/min (70-130); Calcium 7.9 mg/dL (7.8-10.44); Carbon Dioxide 22 mmol/L (23-31); Chloride 110 mmol/L (98-107); Estimated GFR 96; Glucose 96 mg/dL (80-115); Potassium 3.4 mmol/L (3.5-5.1); Sodium 140 mmol/L (136-145)
[2023-04-19] MEDS: Alogliptin 6.25 MG TAB PO SCH (08:45)
[2023-04-19] MEDS: Polyethylene Glycol 3350 17 GM Packet PO SCH (08:45)
[2023-04-19] MEDS: Ketorolac Tromethamine 30 MG/ML VIAL IVP SCH ×3 (08:45→22:31)
[2023-04-19] MEDS: Losartan 25 MG TAB PO SCH (08:46)
[2023-04-19] MEDS: Amlodipine 10 MG TAB PO SCH (08:46)
[2023-04-19] MEDS: Docusate 100 MG CAP PO SCH ×2 (08:47→22:31)
[2023-04-19] MEDS: Atorvastatin Calcium 20 MG TAB PO SCH (08:47)
[2023-04-19] MEDS: Famotidine 20 MG TAB PO SCH ×2 (08:47→22:30)
[2023-04-19] MEDS: Famotidine/PF 20 mg/2ml Vial SLOW IVP SCH (08:47)
[2023-04-19] MEDS: FLUoxetine HCl 10 MG CAP PO SCH (08:50)
[2023-04-20] MEDS: Ketorolac Tromethamine 30 MG/ML VIAL IVP SCH ×4 (03:16→22:10)
[2023-04-20] MEDS: Famotidine/PF 20 mg/2ml Vial SLOW IVP SCH ×3 (03:24→22:12)
[2023-04-20 05:57] LABS: #Eosinphils 0.5 thou/uL (0.0-0.7); #Monocytes 0.7 thou/uL (0.11-0.59); #Neutrophils 5.8 thou/uL (1.40-6.50); %Basophils 0.4 % (0.0-1.0); %Eosinophils 5.4 % (0.0-10.0); %Lymphocytes 17.4 % (21.0-51.0); %Monocytes 7.8 % (0.0-10.0); %Neutrophils 68.6 % (42.0-75.0); Hematocrit 37.2 % (42.0-52.0); Hemoglobin 12.1 g/dL (14.0-18.0); Mean Corpuscular HGB CONC 32.5 g/dL (32.0-36.0); Mean Corpuscular Hemoglobin 27.3 pg (27.0-31.0); Mean Corpuscular Volume 83.8 fl (78.0-98.0); Mean Platelet Volume 9.5 fL (7.4-10.4); Platelet Count 263 10x3/uL (130-400); RBC Distribution Width 13.3 % (11.5-14.5); Red Blood Cell (RBC) Count 4.44 mill/uL (4.70-6.10); White Blood Cell (WBC) Count 8.5 10x3/uL (4.8-10.8)
[2023-04-20] MEDS: cefTRIAXone\\ROCEPHIN 1 GM in Sodium Chloride 0.9% 100 ML IVPB SCH (06:20)
[2023-04-20 06:21] LABS: Anion Gap 13 mmol/L (10-20); BUN (Urea Nitrogen) 6 mg/dL (8.4-25.7); Calc. Creatinine Clearance 112 mL/min (70-130); Calcium 8.5 mg/dL (7.8-10.44); Carbon Dioxide 25 mmol/L (23-31); Chloride 104 mmol/L (98-107); Estimated GFR 95; Glucose 86 mg/dL (80-115); Potassium 3.2 mmol/L (3.5-5.1); Sodium 139 mmol/L (136-145)
[2023-04-20] MEDS: Metoclopramide HCl 10 MG/2 ML VIAL IVP SCH ×3 (06:21→22:11)
[2023-04-20] MEDS ORDERED: Potassium Chloride 20 MEQ TAB PO SCH (07:15)
[2023-04-20] MEDS: FLUoxetine HCl 10 MG CAP PO SCH (09:48)
[2023-04-20] MEDS: Polyethylene Glycol 3350 17 GM Packet PO SCH (09:49)
[2023-04-20] MEDS: Amlodipine 10 MG TAB PO SCH (09:49)
[2023-04-20] MEDS: Atorvastatin Calcium 20 MG TAB PO SCH (09:50)
[2023-04-20] MEDS: Alogliptin 6.25 MG TAB PO SCH (09:50)
[2023-04-20] MEDS: Losartan 25 MG TAB PO SCH (09:50)
[2023-04-20] MEDS: Famotidine 20 MG TAB PO SCH ×2 (09:50→22:12)
[2023-04-20] MEDS: Docusate 100 MG CAP PO SCH ×2 (09:50→22:12)
[2023-04-20] MEDS: HYDROcodone/Acetaminophen 10/325 mg Tablet PO PRN (18:31)
[2023-04-21] MEDS: Ketorolac Tromethamine 30 MG/ML VIAL IVP SCH ×3 (02:58→15:20)
[2023-04-21 05:13] LABS: #Basophils 0.1 thou/uL (0.0-0.2); #Eosinphils 0.6 thou/uL (0.0-0.7); #Monocytes 0.7 thou/uL (0.11-0.59); #Neutrophils 4.1 thou/uL (1.40-6.50); %Basophils 0.8 % (0.0-1.0); %Eosinophils 8.3 % (0.0-10.0); %Monocytes 10.5 % (0.0-10.0); %Neutrophils 61.5 % (42.0-75.0); Hematocrit 39.4 % (42.0-52.0); Hemoglobin 12.9 g/dL (14.0-18.0); Mean Corpuscular HGB CONC 32.7 g/dL (32.0-36.0); Mean Corpuscular Hemoglobin 27.6 pg (27.0-31.0); Mean Corpuscular Volume 84.2 fl (78.0-98.0); Mean Platelet Volume 9.3 fL (7.4-10.4); Platelet Count 280 10x3/uL (130-400); RBC Distribution Width 13.2 % (11.5-14.5); Red Blood Cell (RBC) Count 4.68 mill/uL (4.70-6.10); White Blood Cell (WBC) Count 6.7 10x3/uL (4.8-10.8)
[2023-04-21 05:38] LABS: Anion Gap 12 mmol/L (10-20); BUN (Urea Nitrogen) 8 mg/dL (8.4-25.7); Calc. Creatinine Clearance 116 mL/min (70-130); Calcium 9.4 mg/dL (7.8-10.44); Carbon Dioxide 27 mmol/L (23-31); Chloride 102 mmol/L (98-107); Estimated GFR 96; Glucose 82 mg/dL (80-115); Potassium 3.2 mmol/L (3.5-5.1); Sodium 138 mmol/L (136-145)
[2023-04-21] MEDS: cefTRIAXone\\ROCEPHIN 1 GM in Sodium Chloride 0.9% 100 ML IVPB SCH (06:13)
[2023-04-21] MEDS: Metoclopramide HCl 10 MG/2 ML VIAL IVP SCH ×2 (06:14→14:02)
[2023-04-21] MEDS: Famotidine 20 MG TAB PO SCH (09:22)
[2023-04-21] MEDS: FLUoxetine HCl 10 MG CAP PO SCH (09:23)
[2023-04-21] MEDS: Atorvastatin Calcium 20 MG TAB PO SCH (09:23)
[2023-04-21] MEDS: Docusate 100 MG CAP PO SCH (09:23)
[2023-04-21] MEDS: Alogliptin 6.25 MG TAB PO SCH (09:23)
[2023-04-21] MEDS: Losartan 25 MG TAB PO SCH (09:23)
[2023-04-21] MEDS: Famotidine/PF 20 mg/2ml Vial SLOW IVP SCH (09:24)
[2023-04-21] MEDS: Amlodipine 10 MG TAB PO SCH (09:24)
[2023-04-21] MEDS: Polyethylene Glycol 3350 17 GM Packet PO SCH (09:27)
[2023-04-21 12:32] VITALS: BP 137/75; TEMP 98.1
== END 2023-04-21 15:00 | disposition home health service (06) | DRG 708 ==
LOC: EDSTATUS 10:45 → SURG A 04-17 05:38 → INTOOBSV 04-17 05:38 → OBSVTOIN 04-17 06:00 → SJJU 04-17 16:02
PROVIDERS: ADMIT Urology; ATTEND Urology
PROC: 0VT04ZZ Resection of Prostate, Percutaneous Endoscopic Approach (ICD-10-PCS; principal; 2023-04-17)
PROC: 8E0W4CZ Robotic Assisted Procedure of Trunk Region, Percutaneous Endoscopic Approach (ICD-10-PCS; 2023-04-17)
PROC: 3E033XZ Introduction of Vasopressor into Peripheral Vein, Percutaneous Approach (ICD-10-PCS; 2023-04-17)
PROC: 30233J1 Transfusion of Nonautologous Serum Albumin into Peripheral Vein, Percutaneous Approach (ICD-10-PCS; 2023-04-17)
DX: C61 Malignant neoplasm of prostate (principal); E11.9 Type 2 diabetes mellitus without complications; E78.5 Hyperlipidemia, unspecified; I10 Essential (primary) hypertension; E03.9 Hypothyroidism, unspecified; K57.90 Diverticulosis of intestine, part unspecified, without perforation or abscess without bleeding; F12.90 Cannabis use, unspecified, uncomplicated; R97.20 Elevated prostate specific antigen [PSA]; R35.0 Frequency of micturition; Z12.5 Encounter for screening for malignant neoplasm of prostate; N40.1 Benign prostatic hyperplasia with lower urinary tract symptoms; N52.9 Male erectile dysfunction, unspecified; R06.09 Other forms of dyspnea; R11.0 Nausea; Z79.899 Other long term (current) drug therapy; Z87.891 Personal history of nicotine dependence; Z90.49 Acquired absence of other specified parts of digestive tract; Z98.890 Other specified postprocedural states; Z86.19 Personal history of other infectious and parasitic diseases; Z80.42 Family history of malignant neoplasm of prostate
CPT/HCPCS: 36415; 36416; 76770; 80048; 82570; 85025; 88305; 88309; 88341; 88342; C1713; C1776; C1889; C2613; J0694; J0696; J1815; J1885; J1956; J2272; J2370; J2405; J2704; J2765; J3010; J3490; J7050; P9045; S0020

== ENCOUNTER 2023-05-02 08:37 | Outpatient (CLI) | payer MEDICARE, MEDICAID | END 2023-05-02 08:38 | disposition home or self-care (01) | LOC: RAD 08:37 | PROVIDERS: ATTEND Urology | DX: C61 Malignant neoplasm of prostate (principal) | CPT/HCPCS: 51600; 74430 ==

== ENCOUNTER 2023-05-20 07:28 | Emergency (ER) | payer MEDICARE, MEDICAID ==
[2023-05-20 08:05] LABS: #Eosinphils 0.1 thou/uL (0.0-0.7); #Monocytes 0.9 thou/uL (0.11-0.59); %Basophils 0.3 % (0.0-1.0); %Eosinophils 1.6 % (0.0-10.0); %Monocytes 10.4 % (0.0-10.0); %Neutrophils 69.4 % (42.0-75.0); Hematocrit 40.4 % (42.0-52.0); Hemoglobin 12.9 g/dL (14.0-18.0); Mean Corpuscular HGB CONC 31.9 g/dL (32.0-36.0); Mean Corpuscular Hemoglobin 26.7 pg (27.0-31.0); Mean Corpuscular Volume 83.5 fl (78.0-98.0); Mean Platelet Volume 10.1 fL (7.4-10.4); Platelet Count 325 10x3/uL (130-400); RBC Distribution Width 13.2 % (11.5-14.5); Red Blood Cell (RBC) Count 4.84 mill/uL (4.70-6.10); White Blood Cell (WBC) Count 8.7 10x3/uL (4.8-10.8)
[2023-05-20 08:26] LABS: ALT (SGPT) 15 U/L (8-55); AST (SGOT) 16 U/L (5-34); Albumin 4.6 g/dL (3.4-4.8); Alkaline Phosphatase 109 U/L (40-110); Anion Gap 13 mmol/L (10-20); BUN (Urea Nitrogen) 13 mg/dL (8.4-25.7); Bilirubin, Total Less than 0.2 mg/dL (0.2-1.2); Calc. Creatinine Clearance 0 mL/min (70-130); Calcium 9.6 mg/dL (7.8-10.44); Carbon Dioxide 25 mmol/L (23-31); Chloride 102 mmol/L (98-107); Estimated GFR 91; Glucose 137 mg/dL (80-115); Potassium 3.8 mmol/L (3.5-5.1); Protein, Total 7.6 g/dL (5.8-8.1); Sodium 136 mmol/L (136-145)
[2023-05-20] MEDS ORDERED: Morphine 4 MG/ML VIAL ONE (09:07)
[2023-05-20 10:13] LABS: Lipase 12 U/L (8-78); Magnesium 2.1 mg/dL (1.6-2.6)
[2023-05-20] MEDS ORDERED: Acetaminophen 500 MG TAB ONE (10:34)
[2023-05-20 10:51] LABS: Bacteria/HPF None Seen HPF (None Seen); Bilirubin Negative (Negative); Blood, Urine Negative (Negative); CAUTI Indications for Culture Dysuria,urgency,freq; Clarity Clear (Clear); Glucose, Urine (Dipstick) Normal (Negative); Ketone, Urine Negative (Negative); Leukocyte Negative Leu/uL (Negative); Nitrite Negative (Negative); Protein, Urine (Dipstick) Negative (Neg-Trace); RBC/HPF 0-3 HPF (0-3); Specific Gravity, Urine 1.042 (1.002-1.036); Squamous Epithelial None Seen HPF (0-3); Urobilinogen Normal mg/dL (Less than 2)
[2023-05-20 10:53] LABS: Urine Culture Reflex No No
[2023-05-20] MEDS ORDERED: Iopamidol-370 76% 500 ML MDV (1 ML CHARGE) ONE (15:51)
== END 2023-05-20 12:57 | disposition home or self-care (01) ==
LOC: ERS 07:28
DX: R10.9 Unspecified abdominal pain (principal); R11.2 Nausea with vomiting, unspecified; E78.5 Hyperlipidemia, unspecified; I10 Essential (primary) hypertension; E11.9 Type 2 diabetes mellitus without complications; E03.9 Hypothyroidism, unspecified; Z87.891 Personal history of nicotine dependence
CPT/HCPCS: 36415; 74177; 80053; 81001; 83605; 83690; 83735; 85025; 93005; 96374; J2270

== ENCOUNTER 2024-04-13 05:24 | Emergency (ER) | payer MEDICARE, MEDICAID ==
[2024-04-13 06:39] LABS: #Basophils 0.03 10x3/uL (0.0-0.2); %Basophils 0.3 % (0.0-1.0); %Eosinophils 1.7 % (0.0-10.0); %Lymphocytes 14.8 % (21.0-51.0); %Monocytes 7.9 % (0.0-10.0); %Neutrophils 74.6 % (42.0-75.0); Hematocrit 42.9 % (42.0-52.0); Hemoglobin 13.6 g/dL (14.0-18.0); Mean Corpuscular HGB CONC 31.7 g/dL (32.0-36.0); Mean Corpuscular Hemoglobin 26.8 pg (27.0-31.0); Mean Corpuscular Volume 84.4 fL (78.0-98.0); Mean Platelet Volume 9.5 fL (7.4-10.4); Platelet Count 291 10x3/uL (130-400); Red Blood Cell (RBC) Count 5.08 mill/uL (4.70-6.10)
[2024-04-13] MEDS ORDERED: Ondansetron PF 4 MG/2 ML Vial ONE (07:01)
[2024-04-13] MEDS ORDERED: Morphine 4 MG/ML VIAL ONE (07:01)
[2024-04-13 07:08] LABS: ALT (SGPT) 17 U/L (8-55); Albumin 3.6 g/dL (3.4-4.8); Alkaline Phosphatase 98 U/L (40-110); Anion Gap 13 mmol/L (10-20); BUN (Urea Nitrogen) 13 mg/dL (8.4-25.7); Bilirubin, Total 0.5 mg/dL (0.2-1.2); Calc. Creatinine Clearance 0 mL/min (70-130); Calcium 9.2 mg/dL (7.8-10.44); Carbon Dioxide 25 mmol/L (23-31); Chloride 105 mmol/L (98-107); Estimated GFR 94; Globulin 3.7 g/dL (2.4-3.5); Glucose 108 mg/dL (80-115); Potassium 3.8 mmol/L (3.5-5.1); Protein, Total 7.3 g/dL (5.8-8.1); Sodium 139 mmol/L (136-145)
[2024-04-13 07:47] LABS: AST (SGOT) 17 U/L (5-34)
[2024-04-13 08:34] LABS: Bacteria/HPF None Seen HPF (None Seen); Bilirubin Negative (Negative); Blood, Urine Negative (Negative); CAUTI Indications for Culture Immunosuppressed; Clarity Clear (Clear); Glucose, Urine (Dipstick) Normal (Negative); Ketone, Urine Negative (Negative); Leukocyte Negative Leu/uL (Negative); Nitrite Negative (Negative); Protein, Urine (Dipstick) Negative (Neg-Trace); RBC/HPF None Seen HPF (0-3); Specific Gravity, Urine 1.027 (1.002-1.036); Squamous Epithelial None Seen HPF (0-3); Urobilinogen Normal mg/dL (Less than 2); WBC/HPF 0-3 HPF (0-3)
[2024-04-13 08:38] LABS: Urine Culture Reflex Yes Yes
[2024-04-13] MEDS ORDERED: Iopamidol 370 76% 100 ML VIAL ONE (09:08)
== END 2024-04-13 09:10 | disposition home or self-care (01) ==
LOC: ERS 05:24
DX: K61.0 Anal abscess (principal); I10 Essential (primary) hypertension; E11.9 Type 2 diabetes mellitus without complications; Z87.891 Personal history of nicotine dependence
CPT/HCPCS: 72193; 80053; 81001; 85025; 87086; J2272; J2405; 36415; 96361; 96374; 96375; Q9967

== ENCOUNTER 2025-04-06 01:13 | Emergency (ER) | payer MEDICARE, MEDICAID ==
[2025-04-06 01:38] LABS: #Basophils 0.04 10x3/uL (0.0-0.2); #Eosinophils 0.10 10x3/uL (0.0-0.7); #Monocytes 1.13 10x3/uL (0.11-0.59); #Neutrophils 11.42 10x3/uL (1.40-6.50); %Basophils 0.3 % (0.0-1.0); %Eosinophils 0.7 % (0.0-10.0); %Lymphocytes 14.9 % (21.0-51.0); %Monocytes 7.5 % (0.0-10.0); %Neutrophils 76.1 % (42.0-75.0); Hematocrit 46.8 % (42.0-52.0); Hemoglobin 14.6 g/dL (14.0-18.0); Mean Corpuscular Hemoglobin 25.3 pg (27.0-31.0); Mean Corpuscular Volume 81.1 fL (78.0-98.0); Platelet Count 381 10x3/uL (130-400); Red Blood Cell (RBC) Count 5.77 mill/uL (4.70-6.10); White Blood Cell (WBC) Count 15.00 10x3/uL (4.8-10.8)
[2025-04-06 01:57] LABS: ALT (SGPT) 11 U/L (Less than 45); AST (SGOT) 19 U/L (11-34); Albumin 3.8 g/dL (3.1-4.5); Alkaline Phosphatase 120 U/L (40-110); Anion Gap 19 mmol/L (10-20); BUN (Urea Nitrogen) 23 mg/dL (8.4-25.7); Bilirubin, Total 0.6 mg/dL (0.3-1.2); Calc. Creatinine Clearance 0 mL/min (70-130); Calcium 10.0 mg/dL (7.8-10.44); Carbon Dioxide 22 mmol/L (23-31); Chloride 97 mmol/L (98-107); Globulin 4.2 g/dL (2.4-3.5); Glucose 122 mg/dL (80-115); Potassium 4.2 mmol/L (3.5-5.1); Sodium 134 mmol/L (136-145)
[2025-04-06] MEDS ORDERED: Ondansetron PF 4 MG/2 ML Vial ONE (03:39)
[2025-04-06] MEDS ORDERED: cefTRIAXone (ROCEPHIN) 1 GM VIAL ONE (05:07)
== END 2025-04-06 06:37 | disposition home or self-care (01) ==
LOC: ERS 01:13
DX: R07.89 Other chest pain (principal); L03.317 Cellulitis of buttock; E11.9 Type 2 diabetes mellitus without complications; I10 Essential (primary) hypertension
CPT/HCPCS: 71045; 80053; 84484 ×2; 85025; 93005; J0696; J2270; J2405; 36415; 96374; 96375